=== PATIENT | female | born 1935 | race Caucasian/White ===

== ENCOUNTER 2023-07-03 18:54 | Inpatient (IN) | payer OTHER ==
[2023-07-03] MEDS ORDERED: MIRTAZAPINE 15 MG TABLET (FP) PO ONE (19:54)
[2023-07-03] MEDS ORDERED: QUEtiapine FUMARATE 25 MG TABLET PO ONE (19:54)
[2023-07-03] MEDS ORDERED: MEMANTINE HCL 5 MG TABLET (UD) PO ONE (19:54)
[2023-07-03] MEDS ORDERED: OXYBUTYNIN CHLORIDE 5 MG TABLET PO ONE (19:55)
[2023-07-03 20:28] LABS: EPI CELLS 21 /uL (0-25.1); HYALINE CASTS 1 /uL (0-3.1); PH,URINE 6.5 (5.0-8.0); URINE APPEARANCE CLEAR; URINE BACTERIA 11 /uL (0-1359); URINE BILIRUBIN NEGATIVE (NEGATIVE); URINE COLOR YELLOW; URINE GLUCOSE (UA) NEGATIVE (NEGATIVE); URINE KETONE NEGATIVE (NEGATIVE); URINE LEUK ESTERASE NEGATIVE (NEGATIVE); URINE NITRITE NEGATIVE (NEGATIVE); URINE PROTEIN 1+ (NEGATIVE); URINE RBC 8 /uL (0-23.9); URINE UROBILINOGEN 0.2 mg/dL (0.2-1.0); URINE WBC 9 /uL (0-25.8)
[2023-07-03 20:35] LABS: BASO % 1.1 % (0-2.0); EOS % 3.3 % (0-4.5); HEMATOCRIT 31.1 % (32.4-45.2); HEMOGLOBIN 9.9 GM/dL (10.7-15.3); LYMPH % 18.7 % (8-40); MCH 29.3 pg (25.7-33.7); MCHC 31.8 g/dl (32.0-36.0); MEAN CELL VOLUME 92.2 fl (80-96); MEAN PLT VOLUME 8.6 fl (7.5-11.1); MONO % 9.6 % (3.8-10.2); NEUT % 67.3 % (42.8-82.8); PLATELET COUNT 274 10^3/uL (134-434); RBC 3.37 M/mm3 (3.60-5.2); RDW 15.8 % (11.6-15.6); WHITE BLOOD COUNT 8.3 K/mm3 (4.0-10.0)
[2023-07-03 20:48] LABS: CHLORIDE 107 mmol/L (98-107); SODIUM 132 mmol/L (136-145)
[2023-07-03 20:50] LABS: ALBUMIN 3.2 g/dl (3.4-5.0); BLOOD UREA NITROGEN 51.2 mg/dL (7-18); CALCIUM 7.8 mg/dL (8.5-10.1); CO2 19 mmol/L (21-32); GLUCOSE,RANDOM 124 mg/dL (74-106); MAGNESIUM 2.4 mg/dL (1.8-2.4)
[2023-07-03 20:54] LABS: BILIRUBIN,TOTAL 0.8 mg/dL (0.2-1); CREATININE 5.9 mg/dL (0.55-1.3); PHOSPHOROUS 6.8 mg/dL (2.5-4.9); TOT PROT 8.2 g/dl (6.4-8.2)
[2023-07-03 20:56] LABS: ALK PHOS 77 U/L (45-117)
[2023-07-03] MEDS ORDERED: QUEtiapine FUMARATE 25 MG TABLET ONE (20:57)
[2023-07-03] MEDS ORDERED: MIRTAZAPINE 15 MG TABLET (FP) ONE (20:58)
[2023-07-03 21:06] LABS: ANION GAP 7 MMOL/L (8-16); POTASSIUM > 10.0 mmol/L (3.5-5.1); SGOT/AST 50 U/L (15-37); SGPT/ALT 17 U/L (13-61)
[2023-07-03 22:58] LABS: POTASSIUM 4.9 mmol/L (3.5-5.1)
[2023-07-03 23:00] LABS: ALBUMIN 3.5 g/dl (3.4-5.0); CALCIUM 8.4 mg/dL (8.5-10.1)
[2023-07-03 23:04] LABS: CREATININE 5.8 mg/dL (0.55-1.3)
[2023-07-03 23:06] LABS: BILIRUBIN,TOTAL 0.2 mg/dL (0.2-1); TOT PROT 7.9 g/dl (6.4-8.2)
[2023-07-04] MEDS ORDERED: HEPARIN NA (PORCINE) 5,000 UNITS/ML 1ML VIAL SQ ONE (02:48)
[2023-07-04] MEDS ORDERED: SODIUM CHLORIDE 1,000 ML IV SCH (03:00)
[2023-07-04] MEDS ORDERED: HEPARIN NA (PORCINE) 5,000 UNITS/ML 1ML VIAL ONE (04:38)
[2023-07-04 06:11] LABS: POTASSIUM 5.2 mmol/L (3.5-5.1)
[2023-07-04 06:12] LABS: MAGNESIUM 2.3 mg/dL (1.8-2.4)
[2023-07-04 06:14] LABS: ALBUMIN 3.4 g/dl (3.4-5.0); BLOOD UREA NITROGEN 53.4 mg/dL (7-18); CALCIUM 8.1 mg/dL (8.5-10.1)
[2023-07-04 06:17] LABS: CREATININE 5.8 mg/dL (0.55-1.3)
[2023-07-04 06:18] LABS: PHOSPHOROUS 6.7 mg/dL (2.5-4.9)
[2023-07-04 06:19] LABS: BILIRUBIN,TOTAL 0.2 mg/dL (0.2-1); TOT PROT 7.3 g/dl (6.4-8.2)
[2023-07-04 07:15] LABS: BASO % 1.1 % (0-2.0); LYMPH % 24.7 % (8-40); WHITE BLOOD COUNT 6.8 K/mm3 (4.0-10.0)
[2023-07-04 07:18] LABS: EOS % 4.5 % (0-4.5); HEMATOCRIT 30.4 % (32.4-45.2); MCH 30.4 pg (25.7-33.7); MCHC 32.9 g/dl (32.0-36.0); MEAN CELL VOLUME 92.5 fl (80-96); MEAN PLT VOLUME 7.8 fl (7.5-11.1); MONO % 10.2 % (3.8-10.2); NEUT % 59.5 % (42.8-82.8); PLATELET COUNT 283 10^3/uL (134-434); RBC 3.29 M/mm3 (3.60-5.2); RDW 15.7 % (11.6-15.6)
[2023-07-04] MEDS ORDERED: SODIUM ZIRCONIUM CYCLOSILICATE (LOKELMA) 5 GM PACKET PO SCH (10:00)
[2023-07-04] MEDS: DIVALPROEX NA *ER* EXTEND REL 250 MG TABLET.SA PO SCH (10:20)
[2023-07-04] MEDS: SEVELAMER CARBONATE 800 MG TAB (FP) PO SCH ×3 (10:20→17:02)
[2023-07-04] MEDS: PANTOPRAZOLE 40 MG TABLET PO SCH (10:20)
[2023-07-04] MEDS: MEMANTINE HCL 10 MG TABLET (FP) PO SCH ×2 (10:20→21:27)
[2023-07-04] MEDS: CITALOPRAM HYDROBROMIDE 20 MG TABLET PO SCH (10:20)
[2023-07-04] MEDS: amLODIPine BESYLATE 10 MG TABLET (FP) PO SCH (10:20)
[2023-07-04] MEDS: POLYETHYLENE GLYCOL (HEALTHYLAX) 3350 17 GM PACKET PO SCH ×2 (10:20→21:27)
[2023-07-04] MEDS: SODIUM CHLORIDE 0.45% 1,000 ML IV SCH (17:02)
[2023-07-04] MEDS: HEPARIN NA (PORCINE) 5,000 UNITS/ML 1ML VIAL SQ SCH (21:27)
[2023-07-04] MEDS ORDERED: QUEtiapine FUMARATE 25 MG TABLET PO SCH (22:00)
[2023-07-04] MEDS ORDERED: ATORVASTATIN CA 10 MG TABLET (FP) PO SCH (22:00)
[2023-07-04] MEDS ORDERED: MIRTAZAPINE 15 MG TABLET (FP) PO SCH (22:00)
[2023-07-05] MEDS: SODIUM CHLORIDE 0.45% 1,000 ML IV SCH ×3 (05:08→18:42)
[2023-07-05] MEDS: HEPARIN NA (PORCINE) 5,000 UNITS/ML 1ML VIAL SQ SCH ×3 (05:09→21:58)
[2023-07-05] MEDS: SEVELAMER CARBONATE 800 MG TAB (FP) PO SCH ×3 (08:06→17:42)
[2023-07-05] MEDS: CITALOPRAM HYDROBROMIDE 20 MG TABLET PO SCH (09:12)
[2023-07-05] MEDS: PANTOPRAZOLE 40 MG TABLET PO SCH (09:12)
[2023-07-05] MEDS: amLODIPine BESYLATE 10 MG TABLET (FP) PO SCH (09:12)
[2023-07-05] MEDS: POLYETHYLENE GLYCOL (HEALTHYLAX) 3350 17 GM PACKET PO SCH ×3 (09:13→21:58)
[2023-07-05] MEDS: DIVALPROEX NA *ER* EXTEND REL 250 MG TABLET.SA PO SCH (09:15)
[2023-07-05 09:40] LABS: HEMATOCRIT 28.8 % (32.4-45.2); HEMOGLOBIN 9.4 GM/dL (10.7-15.3); MCH 29.6 pg (25.7-33.7); MCHC 32.6 g/dl (32.0-36.0); MEAN CELL VOLUME 90.8 fl (80-96); MEAN PLT VOLUME 7.3 fl (7.5-11.1); PLATELET COUNT 265 10^3/uL (134-434); RBC 3.17 M/mm3 (3.60-5.2); RDW 15.7 % (11.6-15.6)
[2023-07-05 09:50] LABS: INR 1.08 (0.83-1.09); PROTHROMBIN TIME (PATIENT) 12.5 SEC (9.7-13.0)
[2023-07-05] MEDS: MEMANTINE HCL 10 MG TABLET (FP) PO SCH ×2 (09:59→21:57)
[2023-07-05 10:01] LABS: POTASSIUM 4.4 mmol/L (3.5-5.1)
[2023-07-05 10:03] LABS: BLOOD UREA NITROGEN 49.2 mg/dL (7-18); CALCIUM 7.8 mg/dL (8.5-10.1); MAGNESIUM 2.1 mg/dL (1.8-2.4)
[2023-07-05 10:06] LABS: CREATININE 5.6 mg/dL (0.55-1.3); PHOSPHOROUS 6.1 mg/dL (2.5-4.9)
[2023-07-05] MEDS ORDERED: MIDAZOLAM HCL 2 MG/2 ML SINGLE DOSE VIAL ONE (15:39)
[2023-07-05] MEDS ORDERED: IOHEXOL 300 MG/ML INFUS..BTL IV ONE (15:49)
[2023-07-05] MEDS ORDERED: LACTATED RINGERS SOLUTION 1,000 ML IV SCH (16:15)
[2023-07-05] MEDS: ATORVASTATIN CA 10 MG TABLET (FP) PO SCH (21:57)
[2023-07-05] MEDS: MIRTAZAPINE 15 MG TABLET (FP) PO SCH (21:57)
[2023-07-05] MEDS: QUEtiapine FUMARATE 25 MG TABLET PO SCH (21:57)
[2023-07-06] MEDS: HEPARIN NA (PORCINE) 5,000 UNITS/ML 1ML VIAL SQ SCH ×3 (06:16→22:07)
[2023-07-06] MEDS: SEVELAMER CARBONATE 800 MG TAB (FP) PO SCH ×3 (08:57→17:25)
[2023-07-06] MEDS ORDERED: ACETAMINOPHEN 1000 MG/100 ML BAG IVPB PRN (09:47)
[2023-07-06] MEDS: PANTOPRAZOLE 40 MG TABLET PO SCH (10:14)
[2023-07-06] MEDS: MEMANTINE HCL 10 MG TABLET (FP) PO SCH ×2 (10:14→22:06)
[2023-07-06] MEDS: amLODIPine BESYLATE 10 MG TABLET (FP) PO SCH (10:14)
[2023-07-06] MEDS: CITALOPRAM HYDROBROMIDE 20 MG TABLET PO SCH (10:14)
[2023-07-06] MEDS: DIVALPROEX NA *ER* EXTEND REL 250 MG TABLET.SA PO SCH (10:14)
[2023-07-06] MEDS: POLYETHYLENE GLYCOL (HEALTHYLAX) 3350 17 GM PACKET PO SCH ×2 (10:15→22:08)
[2023-07-06] MEDS: SODIUM CHLORIDE 0.45% 1,000 ML IV SCH (19:47)
[2023-07-06] MEDS ORDERED: LABETALOL HCL 100 MG TABLET (FP) PO ONE (21:29)
[2023-07-06] MEDS: MIRTAZAPINE 15 MG TABLET (FP) PO SCH (22:06)
[2023-07-06] MEDS: QUEtiapine FUMARATE 25 MG TABLET PO SCH (22:06)
[2023-07-06] MEDS: ATORVASTATIN CA 10 MG TABLET (FP) PO SCH (22:06)
[2023-07-07] MEDS: HEPARIN NA (PORCINE) 5,000 UNITS/ML 1ML VIAL SQ SCH (05:42)
[2023-07-07] MEDS: SODIUM CHLORIDE 0.45% 1,000 ML IV SCH ×2 (06:28→21:35)
[2023-07-07] MEDS: SEVELAMER CARBONATE 800 MG TAB (FP) PO SCH ×3 (08:44→17:30)
[2023-07-07] MEDS: CITALOPRAM HYDROBROMIDE 20 MG TABLET PO SCH (12:57)
[2023-07-07] MEDS: DIVALPROEX NA *ER* EXTEND REL 250 MG TABLET.SA PO SCH (12:57)
[2023-07-07] MEDS: PANTOPRAZOLE 40 MG TABLET PO SCH (12:58)
[2023-07-07] MEDS: amLODIPine BESYLATE 10 MG TABLET (FP) PO SCH (12:58)
[2023-07-07] MEDS: POLYETHYLENE GLYCOL (HEALTHYLAX) 3350 17 GM PACKET PO SCH ×2 (12:58→21:37)
[2023-07-07] MEDS: MEMANTINE HCL 10 MG TABLET (FP) PO SCH ×2 (12:58→21:36)
[2023-07-07 13:03] LABS: CHLORIDE 102 mmol/L (98-107); POTASSIUM 5.5 mmol/L (3.5-5.1)
[2023-07-07 13:05] LABS: CALCIUM 7.6 mg/dL (8.5-10.1)
[2023-07-07 13:06] LABS: CO2 14 mmol/L (21-32); GLUCOSE,RANDOM 132 mg/dL (74-106)
[2023-07-07 13:09] LABS: SGOT/AST 14 U/L (15-37)
[2023-07-07 13:10] LABS: BILIRUBIN,TOTAL 0.1 mg/dL (0.2-1); TOT PROT 5.9 g/dl (6.4-8.2)
[2023-07-07 13:11] LABS: ALK PHOS 72 U/L (45-117)
[2023-07-07 13:16] LABS: ALBUMIN 2.4 g/dl (3.4-5.0); ANION GAP 19 MMOL/L (8-16); SGPT/ALT < 6 U/L (13-61); SODIUM 135 mmol/L (136-145)
[2023-07-07] MEDS ORDERED: DEXTROSE 50%-WATER 25 GM/50 ML DISP.SYRIN IVPUSH ONE (13:36)
[2023-07-07] MEDS ORDERED: INSULIN REGULAR HUMAN 100 UNITS/ML *VIAL IVPUSH ONE (13:36)
[2023-07-07] MEDS ORDERED: CALCIUM GLUCONATE IN NACL 1 GM/50 ML BAG IVPB ONE (13:36)
[2023-07-07] MEDS ORDERED: SODIUM ZIRCONIUM CYCLOSILICATE (LOKELMA) 5 GM PACKET PO SCH (13:45)
[2023-07-07] MEDS: SODIUM ZIRCONIUM CYCLOSILICATE (LOKELMA) 5 GM PACKET PO SCH ×2 (15:39→21:37)
[2023-07-07 16:29] LABS: INR 1.22 (0.83-1.09); PROTHROMBIN TIME (PATIENT) 14.1 SEC (9.7-13.0)
[2023-07-07 18:39] LABS: CHLORIDE 104 mmol/L (98-107); POTASSIUM 4.9 mmol/L (3.5-5.1); SODIUM 134 mmol/L (136-145)
[2023-07-07 18:41] LABS: CALCIUM 7.6 mg/dL (8.5-10.1)
[2023-07-07 18:42] LABS: ANION GAP 19 MMOL/L (8-16); BLOOD UREA NITROGEN 79.9 mg/dL (7-18); CO2 11 mmol/L (21-32); GLUCOSE,RANDOM 177 mg/dL (74-106)
[2023-07-07 19:14] LABS: CREATININE 8.4 mg/dL (0.55-1.3)
[2023-07-07] MEDS: QUEtiapine FUMARATE 25 MG TABLET PO SCH (21:36)
[2023-07-07] MEDS: MIRTAZAPINE 15 MG TABLET (FP) PO SCH (21:36)
[2023-07-07] MEDS: ATORVASTATIN CA 10 MG TABLET (FP) PO SCH (21:36)
[2023-07-08] MEDS: SEVELAMER CARBONATE 800 MG TAB (FP) PO SCH ×3 (09:28→18:11)
[2023-07-08] MEDS ORDERED: VALPROATE SODIUM 500 MG/5 ML VIAL IVPB SCH (09:46)
[2023-07-08] MEDS: POLYETHYLENE GLYCOL (HEALTHYLAX) 3350 17 GM PACKET PO SCH ×2 (09:49→23:29)
[2023-07-08] MEDS: SODIUM ZIRCONIUM CYCLOSILICATE (LOKELMA) 5 GM PACKET PO SCH (09:49)
[2023-07-08] MEDS: CITALOPRAM HYDROBROMIDE 20 MG TABLET PO SCH (09:49)
[2023-07-08] MEDS: MEMANTINE HCL 10 MG TABLET (FP) PO SCH (09:50)
[2023-07-08] MEDS: amLODIPine BESYLATE 10 MG TABLET (FP) PO SCH (09:50)
[2023-07-08] MEDS: PANTOPRAZOLE 40 MG TABLET PO SCH (09:51)
[2023-07-08 10:54] LABS: HEMATOCRIT 27.1 % (32.4-45.2); HEMOGLOBIN 9.1 GM/dL (10.7-15.3); MCH 30.3 pg (25.7-33.7); MCHC 33.8 g/dl (32.0-36.0); MEAN CELL VOLUME 89.6 fl (80-96); MEAN PLT VOLUME 7.7 fl (7.5-11.1); PLATELET COUNT 267 10^3/uL (134-434); RBC 3.02 M/mm3 (3.60-5.2); RDW 15.6 % (11.6-15.6); WHITE BLOOD COUNT 17.9 K/mm3 (4.0-10.0)
[2023-07-08 11:20] LABS: CHLORIDE 101 mmol/L (98-107); POTASSIUM 5.9 mmol/L (3.5-5.1); SODIUM 130 mmol/L (136-145)
[2023-07-08 11:27] LABS: MAGNESIUM 2.4 mg/dL (1.8-2.4)
[2023-07-08 11:28] LABS: GLUCOSE,RANDOM 83 mg/dL (74-106)
[2023-07-08 11:29] LABS: BLOOD UREA NITROGEN 96.4 mg/dL (7-18)
[2023-07-08 11:30] LABS: ANION GAP 18 MMOL/L (8-16); BILIRUBIN,TOTAL 0.2 mg/dL (0.2-1); CO2 12 mmol/L (21-32); SGOT/AST 13 U/L (15-37); SGPT/ALT < 6 U/L (13-61)
[2023-07-08 11:31] LABS: ALBUMIN 2.5 g/dl (3.4-5.0); ALK PHOS 74 U/L (45-117); CALCIUM 7.4 mg/dL (8.5-10.1); PHOSPHOROUS 8.9 mg/dL (2.5-4.9); TOT PROT 5.9 g/dl (6.4-8.2)
[2023-07-08 11:33] LABS: CREATININE 8.8 mg/dL (0.55-1.3)
[2023-07-08] MEDS ORDERED: DEXTROSE 50%-WATER - 25 GM/50 ML VIAL IVPUSH ONE (11:36)
[2023-07-08] MEDS ORDERED: SODIUM BICARBONATE 8.4% 50 MEQ/50 ML VIAL IVPUSH ONE ×2 (11:37→12:56)
[2023-07-08] MEDS ORDERED: INSULIN REGULAR HUMAN 100 UNITS/ML *VIAL SQ ONE (11:37)
[2023-07-08] MEDS ORDERED: DEXTROSE 50%-WATER 25 GM/50 ML DISP.SYRIN ONE (11:47)
[2023-07-08 11:55] LABS: ANISOCYTOSIS 0; HELMET CELLS 0; HOWELL-JOLLY BODIES 0; MACROCYTOSIS 0; OVALOCYTE 0; ROULEAU 0; SICKELED CELLS 0; TARGET CELLS 0; TEAR DROP CELLS 0; TOXIC GRANULATION 0
[2023-07-08] MEDS ORDERED: INSULIN REGULAR HUMAN 100 UNITS/ML *VIAL IVPUSH ONE (12:03)
[2023-07-08] MEDS: VALPROATE SODIUM INJECTION 250 MG in DEXTROSE 5%-WATER - 100 ML IVPB SCH ×2 (13:29→18:11)
[2023-07-08] MEDS ORDERED: SODIUM CHLORIDE 0.9% 500 ML IV SCH (14:30)
[2023-07-08] MEDS ORDERED: FENTANYL CITRATE/PF 50 MCG/ML VIAL IVPUSH ONE ×2 (14:31→14:53)
[2023-07-08] MEDS ORDERED: CEFTRIAXONE 2 GM in DEXTROSE 5%-WATER 100 ML IVPB ONE (14:37)
[2023-07-08 15:37] LABS: ANION GAP 21 MMOL/L (8-16); BLOOD UREA NITROGEN 103.6 mg/dL (7-18); CALCIUM 7.4 mg/dL (8.5-10.1); CHLORIDE 102 mmol/L (98-107); CO2 9 mmol/L (21-32); CREATININE 9.2 mg/dL (0.55-1.3); GLUCOSE,RANDOM 117 mg/dL (74-106); POTASSIUM 5.2 mmol/L (3.5-5.1); SODIUM 132 mmol/L (136-145)
[2023-07-08] MEDS ORDERED: cefTRIAXone SODIUM 1 GM VIAL ONE (16:02)
[2023-07-08] MEDS ORDERED: MIDAZOLAM HCL 2 MG/2 ML SINGLE DOSE VIAL ONE (16:02)
[2023-07-08] MEDS ORDERED: FENTANYL CITRATE/PF 50 MCG/ML VIAL ONE ×2 (16:03→16:51)
[2023-07-08] MEDS ORDERED: MIRTAZAPINE 15 MG TABLET (FP) GT SCH (19:35)
[2023-07-08] MEDS ORDERED: QUEtiapine FUMARATE 25 MG TABLET GT SCH (19:35)
[2023-07-08 19:52] LABS: HEMATOCRIT 26.4 % (32.4-45.2); HEMOGLOBIN 8.5 GM/dL (10.7-15.3); MCHC 32.1 g/dl (32.0-36.0); MEAN CELL VOLUME 93.4 fl (80-96); MEAN PLT VOLUME 7.8 fl (7.5-11.1); PLATELET COUNT 270 10^3/uL (134-434); RBC 2.82 M/mm3 (3.60-5.2)
[2023-07-08] MEDS: SODIUM CHLORIDE 0.45% 1,000 ML IV SCH (20:00)
[2023-07-08 21:07] LABS: ANTIGLOMERULAR BASEMENT MEN.AB <0.2 units (0.0-0.9); ATYPICAL pANCA <1:20 titer (Neg:<1:20); C-ANCA <1:20 titer (Neg:<1:20)
[2023-07-08 21:45] LABS: CHLORIDE 100 mmol/L (98-107); POTASSIUM 5.5 mmol/L (3.5-5.1); SODIUM 132 mmol/L (136-145)
[2023-07-08 21:48] LABS: CALCIUM 7.9 mg/dL (8.5-10.1)
[2023-07-08 21:49] LABS: ALBUMIN 2.6 g/dl (3.4-5.0); ANION GAP 18 MMOL/L (8-16); BLOOD UREA NITROGEN 103.8 mg/dL (7-18); CO2 14 mmol/L (21-32); GLUCOSE,RANDOM 91 mg/dL (74-106); MAGNESIUM 2.5 mg/dL (1.8-2.4)
[2023-07-08 21:52] LABS: SGOT/AST 17 U/L (15-37); SGPT/ALT < 6 U/L (13-61)
[2023-07-08 21:53] LABS: BILIRUBIN,TOTAL 0.4 mg/dL (0.2-1)
[2023-07-08 21:54] LABS: TOT PROT 6.6 g/dl (6.4-8.2)
[2023-07-08 21:55] LABS: ALK PHOS 81 U/L (45-117)
[2023-07-08 22:35] LABS: CREATININE 9.1 mg/dL (0.55-1.3); PHOSPHOROUS 8.9 mg/dL (2.5-4.9)
[2023-07-08] MEDS: ATORVASTATIN CA 10 MG TABLET (FP) PO SCH (23:29)
[2023-07-08] MEDS: SEVELAMER CARBONATE 0.8 GM POWDER PACKET GT SCH (23:29)
[2023-07-08] MEDS: MEMANTINE HCL 10 MG TABLET (FP) GT SCH (23:30)
[2023-07-08] MEDS: SODIUM ZIRCONIUM CYCLOSILICATE (LOKELMA) 5 GM PACKET GT SCH (23:30)
[2023-07-09] MEDS: VALPROATE SODIUM INJECTION 250 MG in DEXTROSE 5%-WATER - 100 ML IVPB SCH ×3 (04:17→17:59)
[2023-07-09 08:10] LABS: CHLORIDE 101 mmol/L (98-107); POTASSIUM 4.8 mmol/L (3.5-5.1); SODIUM 135 mmol/L (136-145)
[2023-07-09 08:22] LABS: ALBUMIN 2.5 g/dl (3.4-5.0); ANION GAP 18 MMOL/L (8-16); BLOOD UREA NITROGEN 98.4 mg/dL (7-18); CALCIUM 7.8 mg/dL (8.5-10.1); CO2 16 mmol/L (21-32); GLUCOSE,RANDOM 86 mg/dL (74-106); MAGNESIUM 2.2 mg/dL (1.8-2.4)
[2023-07-09 08:25] LABS: PHOSPHOROUS 8.9 mg/dL (2.5-4.9); SGOT/AST 17 U/L (15-37)
[2023-07-09 08:27] LABS: TOT PROT 6.4 g/dl (6.4-8.2)
[2023-07-09 08:28] LABS: ALK PHOS 80 U/L (45-117); BILIRUBIN,TOTAL 0.2 mg/dL (0.2-1)
[2023-07-09 08:29] LABS: CREATININE 8.3 mg/dL (0.55-1.3); SGPT/ALT < 6 U/L (13-61)
[2023-07-09 08:55] LABS: HEMATOCRIT 25.3 % (32.4-45.2); HEMOGLOBIN 8.4 GM/dL (10.7-15.3); MCH 29.8 pg (25.7-33.7); MCHC 33.1 g/dl (32.0-36.0); MEAN PLT VOLUME 7.5 fl (7.5-11.1); PLATELET COUNT 285 10^3/uL (134-434); RBC 2.81 M/mm3 (3.60-5.2); RDW 15.8 % (11.6-15.6); WHITE BLOOD COUNT 15.5 K/mm3 (4.0-10.0)
[2023-07-09] MEDS: SEVELAMER CARBONATE 0.8 GM POWDER PACKET GT SCH ×3 (10:00→17:59)
[2023-07-09] MEDS: SODIUM CHLORIDE 0.45% 1,000 ML IV SCH (10:00)
[2023-07-09] MEDS: SODIUM ZIRCONIUM CYCLOSILICATE (LOKELMA) 5 GM PACKET GT SCH ×2 (10:01→21:50)
[2023-07-09] MEDS: POLYETHYLENE GLYCOL (HEALTHYLAX) 3350 17 GM PACKET PO SCH ×2 (10:04→21:28)
[2023-07-09] MEDS: MEMANTINE HCL 10 MG TABLET (FP) GT SCH ×2 (10:04→21:29)
[2023-07-09] MEDS: CITALOPRAM HYDROBROMIDE 20 MG TABLET PO SCH (10:04)
[2023-07-09] MEDS: amLODIPine BESYLATE 10 MG TABLET (FP) GT SCH (10:04)
[2023-07-09] MEDS: PANTOPRAZOLE 40 MG TABLET PO SCH (10:05)
[2023-07-09] MEDS ORDERED: SODIUM BICARBONATE 8.4% 50 MEQ/50 ML DISP.SYRIN IVPUSH ONE (11:55)
[2023-07-09] MEDS ORDERED: SODIUM BICARBONATE 8.4% 50 MEQ/50 ML VIAL ONE (12:24)
[2023-07-09] MEDS ORDERED: ACETAMINOPHEN 1000 MG/100 ML BAG IVPB ONE (20:08)
[2023-07-09] MEDS: ATORVASTATIN CA 10 MG TABLET (FP) PO SCH (21:29)
[2023-07-10] MEDS: VALPROATE SODIUM INJECTION 250 MG in DEXTROSE 5%-WATER - 100 ML IVPB SCH ×3 (03:13→18:19)
[2023-07-10 08:24] LABS: HEMATOCRIT 24.7 % (32.4-45.2); HEMOGLOBIN 8.2 GM/dL (10.7-15.3); MCH 29.8 pg (25.7-33.7); MCHC 33.3 g/dl (32.0-36.0); MEAN CELL VOLUME 89.5 fl (80-96); MEAN PLT VOLUME 7.5 fl (7.5-11.1); PLATELET COUNT 309 10^3/uL (134-434); RBC 2.76 M/mm3 (3.60-5.2); RDW 15.3 % (11.6-15.6); WHITE BLOOD COUNT 15.2 K/mm3 (4.0-10.0)
[2023-07-10 08:54] LABS: CHLORIDE 104 mmol/L (98-107); POTASSIUM 3.4 mmol/L (3.5-5.1); SODIUM 139 mmol/L (136-145)
[2023-07-10] MEDS: SEVELAMER CARBONATE 0.8 GM POWDER PACKET GT SCH ×2 (09:00→12:49)
[2023-07-10 09:04] LABS: CALCIUM 7.8 mg/dL (8.5-10.1)
[2023-07-10 09:05] LABS: ALBUMIN 2.4 g/dl (3.4-5.0); ANION GAP 17 MMOL/L (8-16); BLOOD UREA NITROGEN 90.6 mg/dL (7-18); CO2 18 mmol/L (21-32); GLUCOSE,RANDOM 76 mg/dL (74-106); MAGNESIUM 1.9 mg/dL (1.8-2.4)
[2023-07-10 09:08] LABS: CREATININE 6.5 mg/dL (0.55-1.3)
[2023-07-10 09:10] LABS: BILIRUBIN,TOTAL 0.3 mg/dL (0.2-1); PHOSPHOROUS 7.6 mg/dL (2.5-4.9); SGOT/AST 16 U/L (15-37)
[2023-07-10 09:11] LABS: ALK PHOS 74 U/L (45-117)
[2023-07-10 09:16] LABS: SGPT/ALT < 6 U/L (13-61)
[2023-07-10] MEDS ORDERED: ATORVASTATIN CA 10 MG TABLET (FP) GT SCH (10:10)
[2023-07-10] MEDS ORDERED: FAMOTIDINE 10 MG TABLET PEG SCH (10:13)
[2023-07-10] MEDS ORDERED: POLYETHYLENE GLYCOL (HEALTHYLAX) 3350 17 GM PACKET GT SCH (10:15)
[2023-07-10] MEDS ORDERED: CITALOPRAM HYDROBROMIDE 20 MG TABLET GT SCH (10:15)
[2023-07-10] MEDS: MEMANTINE HCL 10 MG TABLET (FP) GT SCH (11:21)
[2023-07-10] MEDS: amLODIPine BESYLATE 10 MG TABLET (FP) GT SCH (11:22)
[2023-07-10] MEDS: SODIUM CHLORIDE 0.45% 1,000 ML IV SCH ×2 (11:26→11:34)
[2023-07-10] MEDS: KCL 10 MEQ IVPB 10 MEQ/100 ML INFUS.BAG IVPB SCH ×3 (11:31→16:17)
[2023-07-10] MEDS: CITALOPRAM HYDROBROMIDE 20 MG TABLET PO SCH (11:34)
[2023-07-10] MEDS: POLYETHYLENE GLYCOL (HEALTHYLAX) 3350 17 GM PACKET PO SCH ×2 (11:35→22:09)
[2023-07-10] MEDS: PANTOPRAZOLE 40 MG TABLET PO SCH (11:35)
[2023-07-10 17:33] LABS: BASO % 0.4 % (0-2.0); EOS % 0.4 % (0-4.5); HEMATOCRIT 24.9 % (32.4-45.2); HEMOGLOBIN 8.4 GM/dL (10.7-15.3); LYMPH % 7.4 % (8-40); MCH 29.7 pg (25.7-33.7); MCHC 33.9 g/dl (32.0-36.0); MEAN CELL VOLUME 87.7 fl (80-96); MEAN PLT VOLUME 7.6 fl (7.5-11.1); MONO % 11.9 % (3.8-10.2); NEUT % 79.9 % (42.8-82.8); PLATELET COUNT 296 10^3/uL (134-434); RBC 2.84 M/mm3 (3.60-5.2); RDW 15.5 % (11.6-15.6); WHITE BLOOD COUNT 14.7 K/mm3 (4.0-10.0)
[2023-07-10] MEDS: SEVELAMER CARBONATE 0.8 GM POWDER PACKET PO SCH (18:12)
[2023-07-10 18:55] LABS: ANISOCYTOSIS 1+; PLATELET ESTIMATE ADEQUATE
[2023-07-10] MEDS ORDERED: QUEtiapine FUMARATE 25 MG TABLET PO SCH (22:00)
[2023-07-10] MEDS: ATORVASTATIN CA 10 MG TABLET (FP) PO SCH (22:09)
[2023-07-10] MEDS: MEMANTINE HCL 10 MG TABLET (FP) PO SCH (22:09)
[2023-07-10] MEDS: QUEtiapine FUMARATE 25 MG TABLET PO SCH (22:09)
[2023-07-10 23:59] VITALS: BMI 33.5
[2023-07-11] MEDS: VALPROATE SODIUM INJECTION 250 MG in DEXTROSE 5%-WATER - 100 ML IVPB SCH ×3 (01:27→17:27)
[2023-07-11 08:46] LABS: HEMOGLOBIN 7.4 GM/dL (10.7-15.3); MCH 30.3 pg (25.7-33.7); MCHC 33.8 g/dl (32.0-36.0); MEAN CELL VOLUME 89.8 fl (80-96); MEAN PLT VOLUME 7.4 fl (7.5-11.1); PLATELET COUNT 309 10^3/uL (134-434); RBC 2.45 M/mm3 (3.60-5.2); RDW 15.4 % (11.6-15.6); WHITE BLOOD COUNT 14.4 K/mm3 (4.0-10.0)
[2023-07-11 09:09] LABS: CHLORIDE 105 mmol/L (98-107); POTASSIUM 3.5 mmol/L (3.5-5.1); SODIUM 141 mmol/L (136-145)
[2023-07-11 09:12] LABS: ANION GAP 14 MMOL/L (8-16); BLOOD UREA NITROGEN 75.4 mg/dL (7-18); CALCIUM 7.8 mg/dL (8.5-10.1); CO2 21 mmol/L (21-32)
[2023-07-11 09:14] LABS: ALBUMIN 2.4 g/dl (3.4-5.0); GLUCOSE,RANDOM 83 mg/dL (74-106); MAGNESIUM 1.9 mg/dL (1.8-2.4)
[2023-07-11 09:15] LABS: PHOSPHOROUS 6.4 mg/dL (2.5-4.9)
[2023-07-11 09:16] LABS: CREATININE 4.9 mg/dL (0.55-1.3); SGOT/AST 16 U/L (15-37)
[2023-07-11 09:17] LABS: BILIRUBIN,TOTAL 0.2 mg/dL (0.2-1); TOT PROT 6.1 g/dl (6.4-8.2)
[2023-07-11 09:18] LABS: ALK PHOS 72 U/L (45-117)
[2023-07-11 09:30] LABS: SGPT/ALT < 6 U/L (13-61)
[2023-07-11] MEDS ORDERED: DIVALPROEX NA *ER* EXTEND REL 250 MG TABLET.SA PO SCH (10:00)
[2023-07-11] MEDS: SEVELAMER CARBONATE 0.8 GM POWDER PACKET PO SCH ×3 (10:16→17:26)
[2023-07-11] MEDS: POLYETHYLENE GLYCOL (HEALTHYLAX) 3350 17 GM PACKET PO SCH ×2 (10:17→22:07)
[2023-07-11] MEDS: CITALOPRAM HYDROBROMIDE 20 MG TABLET PO SCH (10:17)
[2023-07-11] MEDS: FAMOTIDINE 10 MG TABLET PO SCH (10:17)
[2023-07-11] MEDS: SODIUM CHLORIDE 0.45% 1,000 ML IV SCH (10:17)
[2023-07-11] MEDS: MEMANTINE HCL 10 MG TABLET (FP) PO SCH ×2 (10:17→22:07)
[2023-07-11] MEDS: amLODIPine BESYLATE 10 MG TABLET (FP) PO SCH (10:17)
[2023-07-11] MEDS ORDERED: SODIUM CHLORIDE 0.45% 1,000 ML IV SCH (18:47)
[2023-07-11] MEDS: QUEtiapine FUMARATE 25 MG TABLET PO SCH (22:07)
[2023-07-11] MEDS: ATORVASTATIN CA 10 MG TABLET (FP) PO SCH (22:08)
[2023-07-12 00:52] LABS: EPI CELLS 8 /uL (0-25.1); HYALINE CASTS 0 /uL (0-3.1); URINE APPEARANCE CLEAR; URINE BACTERIA 9 /uL (0-1359); URINE BILIRUBIN NEGATIVE (NEGATIVE); URINE COLOR RED; URINE GLUCOSE (UA) NEGATIVE (NEGATIVE); URINE KETONE 1+ (NEGATIVE); URINE LEUK ESTERASE TRACE (NEGATIVE); URINE NITRITE NEGATIVE (NEGATIVE); URINE PROTEIN 1+ (NEGATIVE); URINE RBC 8713 /uL (0-23.9); URINE UROBILINOGEN 0.2 mg/dL (0.2-1.0); URINE WBC 75 /uL (0-25.8)
[2023-07-12] MEDS ORDERED: VALPROATE SODIUM 500 MG/5 ML VIAL IVPB SCH (02:00)
[2023-07-12] MEDS ORDERED: VALPROATE SODIUM INJECTION 250 MG in DEXTROSE 5%-WATER - 100 ML IVPB ONE (02:00)
[2023-07-12 08:45] LABS: HEMATOCRIT 24.5 % (32.4-45.2); HEMOGLOBIN 8.4 GM/dL (10.7-15.3); MCH 30.2 pg (25.7-33.7); MCHC 34.1 g/dl (32.0-36.0); MEAN CELL VOLUME 88.5 fl (80-96); MEAN PLT VOLUME 7.9 fl (7.5-11.1); RBC 2.77 M/mm3 (3.60-5.2); RDW 15.5 % (11.6-15.6); WHITE BLOOD COUNT 12.9 K/mm3 (4.0-10.0)
[2023-07-12 08:50] LABS: POTASSIUM 3.4 mmol/L (3.5-5.1)
[2023-07-12 08:55] LABS: ALBUMIN 2.4 g/dl (3.4-5.0); BLOOD UREA NITROGEN 54.3 mg/dL (7-18)
[2023-07-12 08:56] LABS: CALCIUM 7.8 mg/dL (8.5-10.1); MAGNESIUM 1.4 mg/dL (1.8-2.4)
[2023-07-12 08:58] LABS: CREATININE 3.4 mg/dL (0.55-1.3)
[2023-07-12 08:59] LABS: PHOSPHOROUS 4.8 mg/dL (2.5-4.9)
[2023-07-12 09:01] LABS: BILIRUBIN,TOTAL 0.2 mg/dL (0.2-1); TOT PROT 6.3 g/dl (6.4-8.2)
[2023-07-12] MEDS: CITALOPRAM HYDROBROMIDE 20 MG TABLET PO SCH (09:45)
[2023-07-12] MEDS: DIVALPROEX NA *ER* EXTEND REL 250 MG TABLET.SA PO SCH (09:45)
[2023-07-12] MEDS: FAMOTIDINE 10 MG TABLET PO SCH (09:45)
[2023-07-12] MEDS: amLODIPine BESYLATE 10 MG TABLET (FP) PO SCH (09:45)
[2023-07-12] MEDS: MEMANTINE HCL 10 MG TABLET (FP) PO SCH ×2 (09:45→21:38)
[2023-07-12 09:50] LABS: PLATELET COUNT 298 10^3/uL (134-434)
[2023-07-12] MEDS: SEVELAMER CARBONATE 0.8 GM POWDER PACKET PO SCH ×3 (09:52→17:55)
[2023-07-12] MEDS: POLYETHYLENE GLYCOL (HEALTHYLAX) 3350 17 GM PACKET PO SCH ×2 (09:52→21:38)
[2023-07-12] MEDS ORDERED: MAGNESIUM SULF 50% (8.12 MEQ/2 ML-1 GM VIAL) IVPB ONE (13:00)
[2023-07-12] MEDS: KCL 10 MEQ IVPB 10 MEQ/100 ML INFUS.BAG IVPB SCH ×3 (14:22→16:58)
[2023-07-12] MEDS: QUEtiapine FUMARATE 25 MG TABLET PO SCH (21:38)
[2023-07-12] MEDS: ATORVASTATIN CA 10 MG TABLET (FP) PO SCH (21:39)
[2023-07-13] MEDS: MEMANTINE HCL 10 MG TABLET (FP) PO SCH ×4 (04:13→20:59)
[2023-07-13 07:29] LABS: HEMATOCRIT 22.6 % (32.4-45.2); HEMOGLOBIN 7.6 GM/dL (10.7-15.3); MCH 30.3 pg (25.7-33.7); MCHC 33.6 g/dl (32.0-36.0); MEAN PLT VOLUME 7.2 fl (7.5-11.1); PLATELET COUNT 342 10^3/uL (134-434); RBC 2.51 M/mm3 (3.60-5.2); RDW 15.3 % (11.6-15.6); WHITE BLOOD COUNT 14.2 K/mm3 (4.0-10.0)
[2023-07-13 07:46] LABS: CALCIUM 7.6 mg/dL (8.5-10.1)
[2023-07-13 07:47] LABS: ALBUMIN 2.2 g/dl (3.4-5.0); BLOOD UREA NITROGEN 37.9 mg/dL (7-18); MAGNESIUM 1.6 mg/dL (1.8-2.4)
[2023-07-13 07:50] LABS: CREATININE 2.3 mg/dL (0.55-1.3); PHOSPHOROUS 3.7 mg/dL (2.5-4.9)
[2023-07-13 07:51] LABS: BILIRUBIN,TOTAL 0.2 mg/dL (0.2-1); TOT PROT 5.6 g/dl (6.4-8.2)
[2023-07-13] MEDS ORDERED: SODIUM CHLORIDE 0.45% 1,000 ML IV SCH (08:34)
[2023-07-13] MEDS ORDERED: POTASSIUM CHLORIDE ORAL LIQUID 20 MEQ/15 ML PO ONE (08:45)
[2023-07-13] MEDS ORDERED: MAGNESIUM SULF 50% (8.12 MEQ/2 ML-1 GM VIAL) IVPB ONE (08:45)
[2023-07-13] MEDS: SEVELAMER CARBONATE 0.8 GM POWDER PACKET PO SCH ×2 (08:48→12:38)
[2023-07-13] MEDS: amLODIPine BESYLATE 10 MG TABLET (FP) PO SCH (09:14)
[2023-07-13] MEDS: FAMOTIDINE 10 MG TABLET PO SCH (09:14)
[2023-07-13] MEDS: DIVALPROEX NA *ER* EXTEND REL 250 MG TABLET.SA PO SCH (09:14)
[2023-07-13] MEDS: CITALOPRAM HYDROBROMIDE 20 MG TABLET PO SCH (09:14)
[2023-07-13] MEDS: POLYETHYLENE GLYCOL (HEALTHYLAX) 3350 17 GM PACKET PO SCH ×2 (09:14→20:59)
[2023-07-13] MEDS: KCL 10 MEQ IVPB 10 MEQ/100 ML INFUS.BAG IVPB SCH ×3 (09:53→12:34)
[2023-07-13] MEDS: SODIUM CHLORIDE 0.45%/POT 20 MEQ/1,000 ML INFUS.BAG IV SCH (13:08)
[2023-07-13] MEDS: QUEtiapine FUMARATE 25 MG TABLET PO SCH (18:55)
[2023-07-13] MEDS: ATORVASTATIN CA 10 MG TABLET (FP) PO SCH (20:59)
[2023-07-13] MEDS ORDERED: HALOPERIDOL LACTATE 5 MG/ML IM ONE (21:02)
[2023-07-14] MEDS ORDERED: MAG HYDROX/AL HYDROX/SIMETH 30 ML UNIT-DOSE CUP PO ONE (01:27)
[2023-07-14] MEDS: SODIUM CHLORIDE 0.45%/POT 20 MEQ/1,000 ML INFUS.BAG IV SCH ×2 (05:29→14:56)
[2023-07-14] MEDS ORDERED: ACETAMINOPHEN 1000 MG/100 ML BAG IVPB ONE (05:30)
[2023-07-14 08:04] LABS: HEMATOCRIT 21.2 % (32.4-45.2); HEMOGLOBIN 7.1 GM/dL (10.7-15.3); MCH 30.3 pg (25.7-33.7); MCHC 33.4 g/dl (32.0-36.0); MEAN CELL VOLUME 90.8 fl (80-96); MEAN PLT VOLUME 6.9 fl (7.5-11.1); PLATELET COUNT 335 10^3/uL (134-434); RBC 2.33 M/mm3 (3.60-5.2); RDW 15.2 % (11.6-15.6); WHITE BLOOD COUNT 11.2 K/mm3 (4.0-10.0)
[2023-07-14 08:22] LABS: POTASSIUM 3.8 mmol/L (3.5-5.1)
[2023-07-14 08:28] LABS: CALCIUM 7.9 mg/dL (8.5-10.1)
[2023-07-14 08:29] LABS: ALBUMIN 2.2 g/dl (3.4-5.0); BLOOD UREA NITROGEN 30.9 mg/dL (7-18)
[2023-07-14 08:32] LABS: CREATININE 2.2 mg/dL (0.55-1.3); PHOSPHOROUS 2.9 mg/dL (2.5-4.9)
[2023-07-14 08:33] LABS: TOT PROT 5.7 g/dl (6.4-8.2)
[2023-07-14 08:35] LABS: BILIRUBIN,TOTAL 0.3 mg/dL (0.2-1)
[2023-07-14] MEDS: FAMOTIDINE 10 MG TABLET PO SCH (10:56)
[2023-07-14] MEDS: MEMANTINE HCL 10 MG TABLET (FP) PO SCH (10:56)
[2023-07-14] MEDS: POLYETHYLENE GLYCOL (HEALTHYLAX) 3350 17 GM PACKET PO SCH (10:56)
[2023-07-14] MEDS: CITALOPRAM HYDROBROMIDE 20 MG TABLET PO SCH (10:56)
[2023-07-14] MEDS: DIVALPROEX NA *ER* EXTEND REL 250 MG TABLET.SA PO SCH (10:56)
[2023-07-14] MEDS: amLODIPine BESYLATE 10 MG TABLET (FP) PO SCH (10:56)
[2023-07-14] MEDS ORDERED: VALPROATE SODIUM 500 MG/5 ML VIAL IVPB SCH (15:00)
[2023-07-14] MEDS ORDERED: VALPROATE SODIUM INJECTION 500 MG in DEXTROSE 5%-WATER - 100 ML IVPB SCH (16:30)
[2023-07-14] MEDS: VALPROATE SODIUM INJECTION 250 MG in DEXTROSE 5%-WATER - 100 ML IVPB SCH (17:18)
[2023-07-14] MEDS ORDERED: MIRTAZAPINE 15 MG TABLET (FP) PO SCH (22:00)
[2023-07-15] MEDS: ATORVASTATIN CA 10 MG TABLET (FP) PO SCH ×2 (00:36→21:04)
[2023-07-15] MEDS: QUEtiapine FUMARATE 25 MG TABLET PO SCH (00:36)
[2023-07-15] MEDS: MEMANTINE HCL 10 MG TABLET (FP) PO SCH ×3 (00:36→21:04)
[2023-07-15] MEDS: POLYETHYLENE GLYCOL (HEALTHYLAX) 3350 17 GM PACKET PO SCH ×3 (00:36→21:07)
[2023-07-15] MEDS: VALPROATE SODIUM INJECTION 250 MG in DEXTROSE 5%-WATER - 100 ML IVPB SCH ×3 (01:17→20:49)
[2023-07-15 08:43] LABS: HEMATOCRIT 22.9 % (32.4-45.2); HEMOGLOBIN 7.7 GM/dL (10.7-15.3); MCH 30.3 pg (25.7-33.7); MCHC 33.6 g/dl (32.0-36.0); MEAN CELL VOLUME 90.2 fl (80-96); MEAN PLT VOLUME 6.9 fl (7.5-11.1); PLATELET COUNT 367 10^3/uL (134-434); RBC 2.54 M/mm3 (3.60-5.2); RDW 15.8 % (11.6-15.6); WHITE BLOOD COUNT 11.5 K/mm3 (4.0-10.0)
[2023-07-15 09:08] LABS: CALCIUM 7.9 mg/dL (8.5-10.1)
[2023-07-15 09:09] LABS: MAGNESIUM 1.6 mg/dL (1.8-2.4)
[2023-07-15 09:12] LABS: PHOSPHOROUS 2.7 mg/dL (2.5-4.9)
[2023-07-15] MEDS: CITALOPRAM HYDROBROMIDE 20 MG TABLET PO SCH (09:35)
[2023-07-15] MEDS: amLODIPine BESYLATE 10 MG TABLET (FP) PO SCH (09:35)
[2023-07-15] MEDS: FAMOTIDINE 20 MG/50 ML IVPB 20 MG/50 ML MG IVPB SCH (09:36)
[2023-07-15] MEDS: SODIUM CHLORIDE 0.45%/POT 20 MEQ/1,000 ML INFUS.BAG IV SCH (12:32)
[2023-07-15] MEDS ORDERED: MAGNESIUM SULF 50% (8.12 MEQ/2 ML-1 GM VIAL) IVPB ONE ×2 (12:46→15:15)
[2023-07-15] MEDS ORDERED: MAGNESIUM 2GM/50ML STERILE WATER IVPB IVPB ONE (15:15)
[2023-07-15] MEDS ORDERED: MIRTAZAPINE 15 MG TABLET (FP) PO SCH (19:27)
[2023-07-15] MEDS ORDERED: QUEtiapine FUMARATE 25 MG TABLET PO SCH (19:29)
[2023-07-16] MEDS: VALPROATE SODIUM INJECTION 250 MG in DEXTROSE 5%-WATER - 100 ML IVPB SCH ×3 (03:40→21:50)
[2023-07-16] MEDS ORDERED: INSULIN (NOVOLOG) ASPART 100 UNITS/ML 10ML VIAL ONE (06:13)
[2023-07-16 09:03] LABS: HEMATOCRIT 25.2 % (32.4-45.2); HEMOGLOBIN 8.2 GM/dL (10.7-15.3); MCHC 32.4 g/dl (32.0-36.0); MEAN CELL VOLUME 92.5 fl (80-96); PLATELET COUNT 413 10^3/uL (134-434); RBC 2.73 M/mm3 (3.60-5.2); RDW 15.8 % (11.6-15.6); WHITE BLOOD COUNT 12.6 K/mm3 (4.0-10.0)
[2023-07-16 09:41] LABS: POTASSIUM 4.7 mmol/L (3.5-5.1)
[2023-07-16 09:46] LABS: CALCIUM 8.1 mg/dL (8.5-10.1)
[2023-07-16 09:47] LABS: ALBUMIN 2.3 g/dl (3.4-5.0); BLOOD UREA NITROGEN 19.9 mg/dL (7-18); MAGNESIUM 1.8 mg/dL (1.8-2.4)
[2023-07-16 09:49] LABS: PHOSPHOROUS 2.6 mg/dL (2.5-4.9)
[2023-07-16 09:50] LABS: BILIRUBIN,TOTAL 0.3 mg/dL (0.2-1); CREATININE 1.9 mg/dL (0.55-1.3); TOT PROT 6.5 g/dl (6.4-8.2)
[2023-07-16] MEDS: MEMANTINE HCL 10 MG TABLET (FP) PO SCH ×2 (10:47→21:21)
[2023-07-16] MEDS: amLODIPine BESYLATE 10 MG TABLET (FP) PO SCH (10:47)
[2023-07-16] MEDS: CITALOPRAM HYDROBROMIDE 20 MG TABLET PO SCH (10:47)
[2023-07-16] MEDS: POLYETHYLENE GLYCOL (HEALTHYLAX) 3350 17 GM PACKET PO SCH ×2 (10:47→22:01)
[2023-07-16] MEDS: FAMOTIDINE 20 MG/50 ML IVPB 20 MG/50 ML MG IVPB SCH (10:47)
[2023-07-16] MEDS: SODIUM CHLORIDE 0.45%/POT 20 MEQ/1,000 ML INFUS.BAG IV SCH (13:04)
[2023-07-16] MEDS: QUEtiapine FUMARATE 25 MG TABLET PO PRN (21:21)
[2023-07-16] MEDS: ATORVASTATIN CA 10 MG TABLET (FP) PO SCH (21:21)
[2023-07-16] MEDS: ZINC OXIDE 20% TOPICAL OINTMENT 30 GM TUBE TP SCH (22:00)
[2023-07-17] MEDS: VALPROATE SODIUM INJECTION 250 MG in DEXTROSE 5%-WATER - 100 ML IVPB SCH ×3 (02:37→17:33)
[2023-07-17] MEDS: CITALOPRAM HYDROBROMIDE 20 MG TABLET PO SCH (10:19)
[2023-07-17] MEDS: POLYETHYLENE GLYCOL (HEALTHYLAX) 3350 17 GM PACKET PO SCH ×2 (10:20→22:12)
[2023-07-17] MEDS: MEMANTINE HCL 10 MG TABLET (FP) PO SCH ×2 (10:20→22:13)
[2023-07-17] MEDS: FAMOTIDINE 20 MG/50 ML IVPB 20 MG/50 ML MG IVPB SCH (10:20)
[2023-07-17] MEDS: amLODIPine BESYLATE 10 MG TABLET (FP) PO SCH (10:20)
[2023-07-17] MEDS: ZINC OXIDE 20% TOPICAL OINTMENT 30 GM TUBE TP SCH ×2 (11:07→22:21)
[2023-07-17] MEDS: SODIUM CHLORIDE 0.45%/POT 20 MEQ/1,000 ML INFUS.BAG IV SCH (12:32)
[2023-07-17] MEDS: MIRTAZAPINE 15 MG TABLET (FP) PO PRN (22:12)
[2023-07-17] MEDS: ATORVASTATIN CA 10 MG TABLET (FP) PO SCH (22:13)
[2023-07-17] MEDS: QUEtiapine FUMARATE 25 MG TABLET PO PRN (22:13)
[2023-07-17] MEDS: POTASSIUM CHLORIDE 20 MEQ in AMINO ACIDS 4.25%/D5W 1,000 ML IV SCH (22:13)
[2023-07-18] MEDS: VALPROATE SODIUM INJECTION 250 MG in DEXTROSE 5%-WATER - 100 ML IVPB SCH ×4 (02:41→19:12)
[2023-07-18 09:04] LABS: HEMATOCRIT 23.1 % (32.4-45.2); HEMOGLOBIN 7.7 GM/dL (10.7-15.3); MCH 30.2 pg (25.7-33.7); MCHC 33.5 g/dl (32.0-36.0); MEAN CELL VOLUME 90.3 fl (80-96); MEAN PLT VOLUME 7.4 fl (7.5-11.1); PLATELET COUNT 379 10^3/uL (134-434); RBC 2.55 M/mm3 (3.60-5.2); RDW 15.8 % (11.6-15.6); WHITE BLOOD COUNT 12.9 K/mm3 (4.0-10.0)
[2023-07-18] MEDS: FAMOTIDINE 20 MG/50 ML IVPB 20 MG/50 ML MG IVPB SCH (09:26)
[2023-07-18] MEDS: MEMANTINE HCL 10 MG TABLET (FP) PO SCH ×2 (09:27→22:25)
[2023-07-18] MEDS: CITALOPRAM HYDROBROMIDE 20 MG TABLET PO SCH (09:27)
[2023-07-18] MEDS: ZINC OXIDE 20% TOPICAL OINTMENT 30 GM TUBE TP SCH ×2 (09:27→22:26)
[2023-07-18] MEDS: amLODIPine BESYLATE 10 MG TABLET (FP) PO SCH (09:27)
[2023-07-18 09:41] LABS: POTASSIUM 3.9 mmol/L (3.5-5.1)
[2023-07-18 09:49] LABS: CALCIUM 7.9 mg/dL (8.5-10.1)
[2023-07-18 09:50] LABS: ALBUMIN 2.4 g/dl (3.4-5.0); BLOOD UREA NITROGEN 15.3 mg/dL (7-18); MAGNESIUM 1.1 mg/dL (1.8-2.4)
[2023-07-18 09:53] LABS: CREATININE 1.5 mg/dL (0.55-1.3); PHOSPHOROUS 2.1 mg/dL (2.5-4.9)
[2023-07-18 09:54] LABS: BILIRUBIN,TOTAL 0.2 mg/dL (0.2-1); TOT PROT 6.4 g/dl (6.4-8.2)
[2023-07-18] MEDS: POLYETHYLENE GLYCOL (HEALTHYLAX) 3350 17 GM PACKET PO SCH ×2 (12:30→22:26)
[2023-07-18] MEDS ORDERED: NAPH,MB-DB/K PH,MBDB POWDER PACKET PO ONE (13:09)
[2023-07-18] MEDS ORDERED: MAGNESIUM SULF 50% (8.12 MEQ/2 ML-1 GM VIAL) IVPB ONE (13:09)
[2023-07-18] MEDS: QUEtiapine FUMARATE 25 MG TABLET PO PRN (22:25)
[2023-07-18] MEDS: ATORVASTATIN CA 10 MG TABLET (FP) PO SCH (22:25)
[2023-07-19] MEDS: POTASSIUM CHLORIDE 20 MEQ in AMINO ACIDS 4.25%/D5W 1,000 ML IV SCH (00:28)
[2023-07-19] MEDS: VALPROATE SODIUM INJECTION 250 MG in DEXTROSE 5%-WATER - 100 ML IVPB SCH ×3 (01:56→18:05)
[2023-07-19] MEDS ORDERED: GLUCAGON 1 MG KIT ONE (09:48)
[2023-07-19] MEDS ORDERED: FENTANYL CITRATE/PF 50 MCG/ML VIAL ONE (09:48)
[2023-07-19 10:04] LABS: HEMATOCRIT 22.5 % (32.4-45.2); HEMOGLOBIN 7.5 GM/dL (10.7-15.3); MCH 30.7 pg (25.7-33.7); MCHC 33.5 g/dl (32.0-36.0); MEAN CELL VOLUME 91.7 fl (80-96); PLATELET COUNT 375 10^3/uL (134-434); RBC 2.45 M/mm3 (3.60-5.2); RDW 15.9 % (11.6-15.6); WHITE BLOOD COUNT 9.5 K/mm3 (4.0-10.0)
[2023-07-19 10:14] LABS: POTASSIUM 3.8 mmol/L (3.5-5.1)
[2023-07-19] MEDS ORDERED: SODIUM CHLORIDE 500 ML IV SCH (10:35)
[2023-07-19] MEDS ORDERED: FENTANYL CITRATE/PF 50 MCG/ML VIAL IVPUSH ONE (10:37)
[2023-07-19] MEDS ORDERED: GLUCAGON 1 MG KIT IVPUSH ONE (10:40)
[2023-07-19 10:44] LABS: ALBUMIN 2.3 g/dl (3.4-5.0); BLOOD UREA NITROGEN 17.6 mg/dL (7-18); CALCIUM 8.1 mg/dL (8.5-10.1)
[2023-07-19] MEDS ORDERED: MIDAZOLAM HCL 2 MG/2 ML SINGLE DOSE VIAL ONE (10:44)
[2023-07-19 10:45] LABS: MAGNESIUM 1.5 mg/dL (1.8-2.4)
[2023-07-19] MEDS ORDERED: MIDAZOLAM HCL 2 MG/2 ML SINGLE DOSE VIAL IVPUSH ONE (10:46)
[2023-07-19 10:47] LABS: CREATININE 1.5 mg/dL (0.55-1.3); PHOSPHOROUS 2.8 mg/dL (2.5-4.9)
[2023-07-19 10:48] LABS: BILIRUBIN,TOTAL 0.4 mg/dL (0.2-1); TOT PROT 6.1 g/dl (6.4-8.2)
[2023-07-19] MEDS: MEMANTINE HCL 10 MG TABLET (FP) PO SCH ×2 (10:50→21:02)
[2023-07-19] MEDS: amLODIPine BESYLATE 10 MG TABLET (FP) PO SCH (10:50)
[2023-07-19] MEDS: CITALOPRAM HYDROBROMIDE 20 MG TABLET PO SCH (10:50)
[2023-07-19] MEDS: FAMOTIDINE 20 MG/50 ML IVPB 20 MG/50 ML MG IVPB SCH (10:50)
[2023-07-19] MEDS: ZINC OXIDE 20% TOPICAL OINTMENT 30 GM TUBE TP SCH ×2 (10:50→21:04)
[2023-07-19] MEDS: POLYETHYLENE GLYCOL (HEALTHYLAX) 3350 17 GM PACKET PO SCH ×2 (10:50→21:02)
[2023-07-19] MEDS ORDERED: MAGNESIUM SULF 50% (8.12 MEQ/2 ML-1 GM VIAL) IVPB ONE (16:00)
[2023-07-19] MEDS: QUEtiapine FUMARATE 25 MG TABLET PO PRN (20:56)
[2023-07-19] MEDS: ATORVASTATIN CA 10 MG TABLET (FP) PO SCH (21:02)
[2023-07-20] MEDS: POTASSIUM CHLORIDE 20 MEQ in AMINO ACIDS 4.25%/D5W 1,000 ML IV SCH (00:23)
[2023-07-20] MEDS: VALPROATE SODIUM INJECTION 250 MG in DEXTROSE 5%-WATER - 100 ML IVPB SCH ×3 (03:27→17:50)
[2023-07-20] MEDS: FAMOTIDINE 20 MG/50 ML IVPB 20 MG/50 ML MG IVPB SCH (09:16)
[2023-07-20] MEDS: MEMANTINE HCL 10 MG TABLET (FP) PO SCH ×2 (09:18→22:01)
[2023-07-20] MEDS: POLYETHYLENE GLYCOL (HEALTHYLAX) 3350 17 GM PACKET PO SCH ×2 (09:18→22:00)
[2023-07-20] MEDS: CITALOPRAM HYDROBROMIDE 20 MG TABLET PO SCH (09:18)
[2023-07-20] MEDS: amLODIPine BESYLATE 10 MG TABLET (FP) PO SCH (09:20)
[2023-07-20] MEDS: CEFTRIAXONE 1 GM in DEXTROSE 5%-WATER - 50 ML IVPB SCH (12:23)
[2023-07-20] MEDS: ACETAMINOPHEN 500 MG TABLET (FP) PO PRN ×2 (12:24→23:57)
[2023-07-20] MEDS: ZINC OXIDE 20% TOPICAL OINTMENT 30 GM TUBE TP SCH ×2 (13:00→22:01)
[2023-07-20] MEDS: HEPARIN NA (PORCINE) 5,000 UNITS/ML 1ML VIAL SQ SCH (22:00)
[2023-07-20] MEDS: ATORVASTATIN CA 10 MG TABLET (FP) PO SCH (22:01)
[2023-07-20] MEDS: QUEtiapine FUMARATE 25 MG TABLET PO PRN (23:54)
[2023-07-21] MEDS: VALPROATE SODIUM INJECTION 250 MG in DEXTROSE 5%-WATER - 100 ML IVPB SCH ×3 (01:13→21:25)
[2023-07-21] MEDS: ACETAMINOPHEN 500 MG TABLET (FP) PO PRN ×2 (08:19→14:04)
[2023-07-21] MEDS: HEPARIN NA (PORCINE) 5,000 UNITS/ML 1ML VIAL SQ SCH ×2 (09:45→21:24)
[2023-07-21] MEDS: amLODIPine BESYLATE 10 MG TABLET (FP) PO SCH (09:46)
[2023-07-21] MEDS: POLYETHYLENE GLYCOL (HEALTHYLAX) 3350 17 GM PACKET PO SCH ×2 (09:46→21:24)
[2023-07-21] MEDS: MEMANTINE HCL 10 MG TABLET (FP) PO SCH ×2 (09:46→21:24)
[2023-07-21] MEDS: CITALOPRAM HYDROBROMIDE 20 MG TABLET PO SCH (09:46)
[2023-07-21] MEDS: ZINC OXIDE 20% TOPICAL OINTMENT 30 GM TUBE TP SCH ×2 (09:48→21:25)
[2023-07-21 10:45] LABS: BASO % 0.6 % (0-2.0); EOS % 1.9 % (0-4.5); HEMATOCRIT 19.6 % (32.4-45.2); LYMPH % 9.7 % (8-40); MCH 30.4 pg (25.7-33.7); MCHC 33.6 g/dl (32.0-36.0); MEAN CELL VOLUME 90.4 fl (80-96); MEAN PLT VOLUME 7.4 fl (7.5-11.1); MONO % 8.8 % (3.8-10.2); PLATELET COUNT 326 10^3/uL (134-434); RBC 2.16 M/mm3 (3.60-5.2); RDW 16.1 % (11.6-15.6); WHITE BLOOD COUNT 11.3 K/mm3 (4.0-10.0)
[2023-07-21 11:03] LABS: HEMOGLOBIN 6.6 GM/dL (10.7-15.3)
[2023-07-21 11:08] LABS: POTASSIUM 3.5 mmol/L (3.5-5.1)
[2023-07-21 11:14] LABS: ALBUMIN 2.2 g/dl (3.4-5.0); BLOOD UREA NITROGEN 19.1 mg/dL (7-18); CALCIUM 7.9 mg/dL (8.5-10.1)
[2023-07-21 11:17] LABS: CREATININE 1.4 mg/dL (0.55-1.3)
[2023-07-21 11:19] LABS: BILIRUBIN,TOTAL 0.2 mg/dL (0.2-1); TOT PROT 5.8 g/dl (6.4-8.2)
[2023-07-21] MEDS: FAMOTIDINE 20 MG/50 ML IVPB 20 MG/50 ML MG IVPB SCH (12:09)
[2023-07-21] MEDS: PANTOPRAZOLE SODIUM 40 MG VIAL IVPUSH SCH (12:31)
[2023-07-21] MEDS: CEFTRIAXONE 1 GM in DEXTROSE 5%-WATER - 50 ML IVPB SCH (12:36)
[2023-07-21] MEDS: ATORVASTATIN CA 10 MG TABLET (FP) PO SCH (21:24)
[2023-07-21] MEDS: QUEtiapine FUMARATE 25 MG TABLET PO PRN (21:24)
[2023-07-22] MEDS: VALPROATE SODIUM INJECTION 250 MG in DEXTROSE 5%-WATER - 100 ML IVPB SCH ×3 (03:01→17:57)
[2023-07-22] MEDS: HEPARIN NA (PORCINE) 5,000 UNITS/ML 1ML VIAL SQ SCH ×2 (10:42→21:06)
[2023-07-22] MEDS: MEMANTINE HCL 10 MG TABLET (FP) PO SCH ×2 (10:42→21:05)
[2023-07-22] MEDS: POLYETHYLENE GLYCOL (HEALTHYLAX) 3350 17 GM PACKET PO SCH ×2 (10:42→21:06)
[2023-07-22] MEDS: CITALOPRAM HYDROBROMIDE 20 MG TABLET PO SCH (10:42)
[2023-07-22] MEDS: ACETAMINOPHEN 500 MG TABLET (FP) PO PRN (10:42)
[2023-07-22] MEDS: amLODIPine BESYLATE 10 MG TABLET (FP) PO SCH (10:44)
[2023-07-22] MEDS: CEFTRIAXONE 1 GM in DEXTROSE 5%-WATER - 50 ML IVPB SCH (10:45)
[2023-07-22 11:31] LABS: BASO % 0.8 % (0-2.0); EOS % 3.3 % (0-4.5); HEMATOCRIT 26.9 % (32.4-45.2); HEMOGLOBIN 9.2 GM/dL (10.7-15.3); MCH 30.7 pg (25.7-33.7); MCHC 34.2 g/dl (32.0-36.0); MEAN PLT VOLUME 7.7 fl (7.5-11.1); MONO % 8.8 % (3.8-10.2); NEUT % 70.1 % (42.8-82.8); PLATELET COUNT 340 10^3/uL (134-434); RBC 2.99 M/mm3 (3.60-5.2); WHITE BLOOD COUNT 10.2 K/mm3 (4.0-10.0)
[2023-07-22 11:55] LABS: POTASSIUM 4.3 mmol/L (3.5-5.1)
[2023-07-22 12:00] LABS: ALBUMIN 2.2 g/dl (3.4-5.0); BLOOD UREA NITROGEN 20.7 mg/dL (7-18); CALCIUM 7.8 mg/dL (8.5-10.1); MAGNESIUM 1.5 mg/dL (1.8-2.4)
[2023-07-22] MEDS: PANTOPRAZOLE SODIUM 40 MG VIAL IVPUSH SCH (12:04)
[2023-07-22] MEDS: ZINC OXIDE 20% TOPICAL OINTMENT 30 GM TUBE TP SCH ×2 (12:04→21:06)
[2023-07-22 12:05] LABS: BILIRUBIN,TOTAL 0.2 mg/dL (0.2-1); CREATININE 1.4 mg/dL (0.55-1.3)
[2023-07-22] MEDS: ATORVASTATIN CA 10 MG TABLET (FP) PO SCH (21:05)
[2023-07-22] MEDS: QUEtiapine FUMARATE 25 MG TABLET PO PRN (21:06)
[2023-07-23] MEDS: VALPROATE SODIUM INJECTION 250 MG in DEXTROSE 5%-WATER - 100 ML IVPB SCH ×3 (01:37→19:10)
[2023-07-23] MEDS: POLYETHYLENE GLYCOL (HEALTHYLAX) 3350 17 GM PACKET PO SCH ×2 (09:45→21:09)
[2023-07-23] MEDS: CEFTRIAXONE 1 GM in DEXTROSE 5%-WATER - 50 ML IVPB SCH (10:19)
[2023-07-23] MEDS: amLODIPine BESYLATE 10 MG TABLET (FP) PO SCH (10:22)
[2023-07-23] MEDS: MEMANTINE HCL 10 MG TABLET (FP) PO SCH ×2 (10:22→21:08)
[2023-07-23] MEDS: CITALOPRAM HYDROBROMIDE 20 MG TABLET PO SCH (10:22)
[2023-07-23] MEDS: PANTOPRAZOLE SODIUM 40 MG VIAL IVPUSH SCH (10:23)
[2023-07-23] MEDS: HEPARIN NA (PORCINE) 5,000 UNITS/ML 1ML VIAL SQ SCH ×2 (10:24→21:09)
[2023-07-23] MEDS: ZINC OXIDE 20% TOPICAL OINTMENT 30 GM TUBE TP SCH ×2 (10:26→21:09)
[2023-07-23 13:13] LABS: BASO % 1.1 % (0-2.0); EOS % 3.1 % (0-4.5); HEMATOCRIT 26.9 % (32.4-45.2); HEMOGLOBIN 9.3 GM/dL (10.7-15.3); MCH 30.8 pg (25.7-33.7); MCHC 34.4 g/dl (32.0-36.0); MEAN CELL VOLUME 89.5 fl (80-96); MEAN PLT VOLUME 8.5 fl (7.5-11.1); MONO % 9.1 % (3.8-10.2); NEUT % 73.7 % (42.8-82.8); PLATELET COUNT 352 10^3/uL (134-434); RBC 3.01 M/mm3 (3.60-5.2); RDW 15.6 % (11.6-15.6)
[2023-07-23 14:11] LABS: POTASSIUM 4.1 mmol/L (3.5-5.1)
[2023-07-23 14:13] LABS: CALCIUM 8.4 mg/dL (8.5-10.1)
[2023-07-23 14:14] LABS: BLOOD UREA NITROGEN 21.2 mg/dL (7-18)
[2023-07-23 14:17] LABS: CREATININE 1.3 mg/dL (0.55-1.3)
[2023-07-23] MEDS: ACETAMINOPHEN 500 MG TABLET (FP) PO PRN (16:12)
[2023-07-23] MEDS ORDERED: ACETAMINOPHEN 1000 MG/100 ML BAG IVPB ONE (16:22)
[2023-07-23] MEDS: ATORVASTATIN CA 10 MG TABLET (FP) PO SCH (21:08)
[2023-07-23] MEDS: QUEtiapine FUMARATE 25 MG TABLET PO PRN (21:09)
[2023-07-23] MEDS ORDERED: ACETAMINOPHEN 1000 MG/100 ML BAG IVPB PRN (23:00)
[2023-07-24] MEDS: VALPROATE SODIUM INJECTION 250 MG in DEXTROSE 5%-WATER - 100 ML IVPB SCH ×3 (01:58→17:53)
[2023-07-24] MEDS: CITALOPRAM HYDROBROMIDE 20 MG TABLET PO SCH (10:30)
[2023-07-24] MEDS: MEMANTINE HCL 10 MG TABLET (FP) PO SCH ×2 (10:30→21:35)
[2023-07-24] MEDS: HEPARIN NA (PORCINE) 5,000 UNITS/ML 1ML VIAL SQ SCH ×2 (10:30→21:35)
[2023-07-24] MEDS: PANTOPRAZOLE SODIUM 40 MG VIAL IVPUSH SCH (10:30)
[2023-07-24 10:31] LABS: BASO % 0.9 % (0-2.0); HEMATOCRIT 25.9 % (32.4-45.2); HEMOGLOBIN 8.8 GM/dL (10.7-15.3); LYMPH % 17.5 % (8-40); MCH 30.6 pg (25.7-33.7); MCHC 33.8 g/dl (32.0-36.0); MEAN CELL VOLUME 90.5 fl (80-96); MEAN PLT VOLUME 7.9 fl (7.5-11.1); NEUT % 66.6 % (42.8-82.8); PLATELET COUNT 390 10^3/uL (134-434); RBC 2.86 M/mm3 (3.60-5.2); RDW 15.3 % (11.6-15.6); WHITE BLOOD COUNT 9.2 K/mm3 (4.0-10.0)
[2023-07-24] MEDS: QUEtiapine FUMARATE 25 MG TABLET GT SCH ×2 (10:31→21:35)
[2023-07-24] MEDS: POLYETHYLENE GLYCOL (HEALTHYLAX) 3350 17 GM PACKET PO SCH ×2 (10:31→21:35)
[2023-07-24] MEDS: CEFTRIAXONE 1 GM in DEXTROSE 5%-WATER - 50 ML IVPB SCH (10:31)
[2023-07-24 10:51] LABS: POTASSIUM 4.1 mmol/L (3.5-5.1)
[2023-07-24 10:58] LABS: BLOOD UREA NITROGEN 18.3 mg/dL (7-18)
[2023-07-24 11:03] LABS: ALBUMIN 2.3 g/dl (3.4-5.0); CALCIUM 8.2 mg/dL (8.5-10.1); MAGNESIUM 1.6 mg/dL (1.8-2.4)
[2023-07-24 11:06] LABS: CREATININE 1.2 mg/dL (0.55-1.3)
[2023-07-24] MEDS: ZINC OXIDE 20% TOPICAL OINTMENT 30 GM TUBE TP SCH ×2 (11:06→21:35)
[2023-07-24 11:07] LABS: BILIRUBIN,TOTAL 0.2 mg/dL (0.2-1); TOT PROT 6.2 g/dl (6.4-8.2)
[2023-07-24] MEDS ORDERED: MAGNESIUM OXIDE 400 MG TABLET (FP) PO ONE (13:30)
[2023-07-24] MEDS: ATORVASTATIN CA 10 MG TABLET (FP) PO SCH (21:35)
[2023-07-25] MEDS: VALPROATE SODIUM INJECTION 250 MG in DEXTROSE 5%-WATER - 100 ML IVPB SCH ×3 (01:58→23:11)
[2023-07-25] MEDS: AMINO ACIDS/PROTEIN HYDROLYS 30 ML LIQUID.PKT PO SCH (08:41)
[2023-07-25] MEDS: PANTOPRAZOLE SODIUM 40 MG VIAL IVPUSH SCH (09:58)
[2023-07-25] MEDS: CEFTRIAXONE 1 GM in DEXTROSE 5%-WATER - 50 ML IVPB SCH (09:58)
[2023-07-25] MEDS: POLYETHYLENE GLYCOL (HEALTHYLAX) 3350 17 GM PACKET PO SCH ×2 (09:59→23:11)
[2023-07-25] MEDS: MEMANTINE HCL 10 MG TABLET (FP) PO SCH ×2 (09:59→22:10)
[2023-07-25] MEDS: HEPARIN NA (PORCINE) 5,000 UNITS/ML 1ML VIAL SQ SCH ×2 (09:59→22:08)
[2023-07-25] MEDS: CITALOPRAM HYDROBROMIDE 20 MG TABLET PO SCH (09:59)
[2023-07-25] MEDS: QUEtiapine FUMARATE 25 MG TABLET GT SCH ×2 (10:00→22:09)
[2023-07-25] MEDS: ZINC OXIDE 20% TOPICAL OINTMENT 30 GM TUBE TP SCH ×2 (10:00→23:11)
[2023-07-25 11:44] LABS: ALBUMIN 2.2 g/dl (3.4-5.0); CALCIUM 8.4 mg/dL (8.5-10.1); HEMATOCRIT 26.7 % (32.4-45.2); HEMOGLOBIN 8.9 GM/dL (10.7-15.3); MCH 30.4 pg (25.7-33.7); MCHC 33.1 g/dl (32.0-36.0); MEAN CELL VOLUME 91.7 fl (80-96); MEAN PLT VOLUME 7.8 fl (7.5-11.1); PLATELET COUNT 370 10^3/uL (134-434); RBC 2.92 M/mm3 (3.60-5.2); RDW 15.6 % (11.6-15.6); WHITE BLOOD COUNT 7.8 K/mm3 (4.0-10.0)
[2023-07-25 11:45] LABS: BLOOD UREA NITROGEN 21.4 mg/dL (7-18); MAGNESIUM 1.7 mg/dL (1.8-2.4)
[2023-07-25 11:47] LABS: CREATININE 1.4 mg/dL (0.55-1.3)
[2023-07-25 11:49] LABS: BILIRUBIN,TOTAL 0.3 mg/dL (0.2-1); PHOSPHOROUS 2.7 mg/dL (2.5-4.9); TOT PROT 6.2 g/dl (6.4-8.2)
[2023-07-25 12:30] LABS: ANISOCYTOSIS 0; HELMET CELLS 0; HOWELL-JOLLY BODIES 0; MACROCYTOSIS 0; OVALOCYTE 0; ROULEAU 0; SICKELED CELLS 0; TARGET CELLS 0; TEAR DROP CELLS 0; TOXIC GRANULATION 0
[2023-07-25] MEDS ORDERED: MAGNESIUM 2GM/50ML STERILE WATER IVPB IVPB ONE (13:07)
[2023-07-25] MEDS: MIRTAZAPINE 15 MG TABLET (FP) PO PRN (20:11)
[2023-07-25] MEDS: ATORVASTATIN CA 10 MG TABLET (FP) PO SCH (22:10)
[2023-07-26] MEDS: VALPROATE SODIUM INJECTION 250 MG in DEXTROSE 5%-WATER - 100 ML IVPB SCH ×3 (02:09→18:09)
[2023-07-26] MEDS: AMINO ACIDS/PROTEIN HYDROLYS 30 ML LIQUID.PKT PO SCH (08:50)
[2023-07-26] MEDS: CEFTRIAXONE 1 GM in DEXTROSE 5%-WATER - 50 ML IVPB SCH (09:36)
[2023-07-26] MEDS: POLYETHYLENE GLYCOL (HEALTHYLAX) 3350 17 GM PACKET PO SCH ×2 (09:36→21:12)
[2023-07-26] MEDS: CITALOPRAM HYDROBROMIDE 20 MG TABLET PO SCH (09:37)
[2023-07-26] MEDS: MEMANTINE HCL 10 MG TABLET (FP) PO SCH ×2 (09:37→21:11)
[2023-07-26] MEDS: PANTOPRAZOLE SODIUM 40 MG VIAL IVPUSH SCH (09:37)
[2023-07-26] MEDS: HEPARIN NA (PORCINE) 5,000 UNITS/ML 1ML VIAL SQ SCH ×2 (09:37→21:12)
[2023-07-26] MEDS: QUEtiapine FUMARATE 25 MG TABLET GT SCH ×2 (09:39→21:12)
[2023-07-26] MEDS: ZINC OXIDE 20% TOPICAL OINTMENT 30 GM TUBE TP SCH ×2 (09:43→21:13)
[2023-07-26 11:17] LABS: HEMATOCRIT 25.4 % (32.4-45.2); HEMOGLOBIN 8.6 GM/dL (10.7-15.3); MCH 30.5 pg (25.7-33.7); MCHC 33.7 g/dl (32.0-36.0); MEAN CELL VOLUME 90.5 fl (80-96); MEAN PLT VOLUME 7.5 fl (7.5-11.1); PLATELET COUNT 360 10^3/uL (134-434); RBC 2.81 M/mm3 (3.60-5.2); RDW 15.7 % (11.6-15.6); WHITE BLOOD COUNT 6.8 K/mm3 (4.0-10.0)
[2023-07-26 11:54] LABS: POTASSIUM 4.3 mmol/L (3.5-5.1)
[2023-07-26 13:00] LABS: ALBUMIN 2.2 g/dl (3.4-5.0); BLOOD UREA NITROGEN 24.5 mg/dL (7-18)
[2023-07-26 13:02] LABS: BILIRUBIN,TOTAL 0.3 mg/dL (0.2-1); CREATININE 1.4 mg/dL (0.55-1.3); TOT PROT 6.1 g/dl (6.4-8.2)
[2023-07-26] MEDS: ATORVASTATIN CA 10 MG TABLET (FP) PO SCH (21:12)
[2023-07-27] MEDS: VALPROATE SODIUM INJECTION 250 MG in DEXTROSE 5%-WATER - 100 ML IVPB SCH ×3 (02:05→17:34)
[2023-07-27] MEDS: AMINO ACIDS/PROTEIN HYDROLYS 30 ML LIQUID.PKT PO SCH (09:00)
[2023-07-27 09:41] LABS: HEMATOCRIT 27.2 % (32.4-45.2); MCH 30.2 pg (25.7-33.7); MEAN CELL VOLUME 91.6 fl (80-96); MEAN PLT VOLUME 7.7 fl (7.5-11.1); PLATELET COUNT 398 10^3/uL (134-434); RBC 2.97 M/mm3 (3.60-5.2); RDW 15.2 % (11.6-15.6); WHITE BLOOD COUNT 6.2 K/mm3 (4.0-10.0)
[2023-07-27] MEDS: CITALOPRAM HYDROBROMIDE 20 MG TABLET PO SCH (09:46)
[2023-07-27] MEDS: HEPARIN NA (PORCINE) 5,000 UNITS/ML 1ML VIAL SQ SCH ×2 (09:46→21:19)
[2023-07-27] MEDS: MEMANTINE HCL 10 MG TABLET (FP) PO SCH ×2 (09:46→21:20)
[2023-07-27] MEDS: QUEtiapine FUMARATE 25 MG TABLET GT SCH ×2 (09:46→21:20)
[2023-07-27] MEDS: ZINC OXIDE 20% TOPICAL OINTMENT 30 GM TUBE TP SCH ×2 (09:47→21:21)
[2023-07-27] MEDS: PANTOPRAZOLE SODIUM 40 MG VIAL IVPUSH SCH (09:52)
[2023-07-27 09:53] LABS: POTASSIUM 4.4 mmol/L (3.5-5.1)
[2023-07-27] MEDS: POLYETHYLENE GLYCOL (HEALTHYLAX) 3350 17 GM PACKET PO SCH ×2 (10:07→21:21)
[2023-07-27 10:12] LABS: CALCIUM 8.5 mg/dL (8.5-10.1)
[2023-07-27 10:13] LABS: ALBUMIN 2.4 g/dl (3.4-5.0); BLOOD UREA NITROGEN 26.8 mg/dL (7-18)
[2023-07-27 10:15] LABS: PHOSPHOROUS 3.1 mg/dL (2.5-4.9)
[2023-07-27 10:16] LABS: CREATININE 1.4 mg/dL (0.55-1.3)
[2023-07-27 10:17] LABS: BILIRUBIN,TOTAL 0.4 mg/dL (0.2-1); TOT PROT 6.5 g/dl (6.4-8.2)
[2023-07-27 10:39] LABS: ANISOCYTOSIS 2+; MACROCYTOSIS 0; OVALOCYTE 1+; TARGET CELLS 1+
[2023-07-27] MEDS: ATORVASTATIN CA 10 MG TABLET (FP) PO SCH (21:20)
[2023-07-28] MEDS: VALPROATE SODIUM INJECTION 250 MG in DEXTROSE 5%-WATER - 100 ML IVPB SCH ×3 (03:09→17:34)
[2023-07-28] MEDS: AMINO ACIDS/PROTEIN HYDROLYS 30 ML LIQUID.PKT PO SCH (08:56)
[2023-07-28] MEDS: HEPARIN NA (PORCINE) 5,000 UNITS/ML 1ML VIAL SQ SCH ×2 (10:03→21:05)
[2023-07-28] MEDS: QUEtiapine FUMARATE 25 MG TABLET GT SCH ×2 (10:03→23:17)
[2023-07-28] MEDS: CITALOPRAM HYDROBROMIDE 20 MG TABLET PO SCH (10:03)
[2023-07-28] MEDS: PANTOPRAZOLE SODIUM 40 MG VIAL IVPUSH SCH (10:03)
[2023-07-28] MEDS: POLYETHYLENE GLYCOL (HEALTHYLAX) 3350 17 GM PACKET PO SCH (10:04)
[2023-07-28] MEDS: MEMANTINE HCL 10 MG TABLET (FP) PO SCH ×2 (10:04→23:17)
[2023-07-28] MEDS ORDERED: QUEtiapine FUMARATE 25 MG TABLET PO ONE (10:10)
[2023-07-28] MEDS: ZINC OXIDE 20% TOPICAL OINTMENT 30 GM TUBE TP SCH ×2 (10:29→21:06)
[2023-07-28] MEDS ORDERED: BANATROL PLUS POWDER PACKET GT SCH (15:00)
[2023-07-28] MEDS ORDERED: BANATROL PLUS POWDER PACKET PO SCH (22:00)
[2023-07-28] MEDS: ATORVASTATIN CA 10 MG TABLET (FP) PO SCH (23:16)
[2023-07-28] MEDS: MIRTAZAPINE 15 MG TABLET (FP) PO PRN (23:17)
[2023-07-29] MEDS: VALPROATE SODIUM INJECTION 250 MG in DEXTROSE 5%-WATER - 100 ML IVPB SCH ×2 (02:30→11:39)
[2023-07-29] MEDS: FAMOTIDINE 20 MG/2.5 ML ORAL LIQUID PEG SCH (09:56)
[2023-07-29] MEDS: MEMANTINE HCL 10 MG TABLET (FP) PO SCH ×2 (09:56→21:44)
[2023-07-29] MEDS: HEPARIN NA (PORCINE) 5,000 UNITS/ML 1ML VIAL SQ SCH ×2 (09:56→21:53)
[2023-07-29] MEDS: CITALOPRAM HYDROBROMIDE 20 MG TABLET PO SCH (09:56)
[2023-07-29] MEDS: QUEtiapine FUMARATE 25 MG TABLET GT SCH (09:56)
[2023-07-29] MEDS: AMINO ACIDS/PROTEIN HYDROLYS 30 ML LIQUID.PKT PO SCH (09:57)
[2023-07-29 10:35] LABS: HEMOGLOBIN 9.7 GM/dL (10.7-15.3); MCH 30.2 pg (25.7-33.7); MCHC 33.5 g/dl (32.0-36.0); MEAN CELL VOLUME 90.3 fl (80-96); MEAN PLT VOLUME 7.7 fl (7.5-11.1); PLATELET COUNT 427 10^3/uL (134-434); RBC 3.21 M/mm3 (3.60-5.2); RDW 15.5 % (11.6-15.6); WHITE BLOOD COUNT 8.2 K/mm3 (4.0-10.0)
[2023-07-29 10:57] LABS: BLOOD UREA NITROGEN 31.3 mg/dL (7-18); CALCIUM 8.6 mg/dL (8.5-10.1)
[2023-07-29 11:01] LABS: CREATININE 1.3 mg/dL (0.55-1.3)
[2023-07-29] MEDS: ZINC OXIDE 20% TOPICAL OINTMENT 30 GM TUBE TP SCH ×2 (11:40→21:46)
[2023-07-29] MEDS: MIRTAZAPINE 15 MG TABLET (FP) PO PRN (19:19)
[2023-07-29] MEDS ORDERED: QUEtiapine FUMARATE 25 MG TABLET ONE ×2 (21:39→21:46)
[2023-07-29] MEDS: ATORVASTATIN CA 10 MG TABLET (FP) PO SCH (21:44)
[2023-07-29] MEDS ORDERED: QUEtiapine FUMARATE 50 MG TABLET GT SCH (22:00)
[2023-07-30] MEDS: VALPROATE SODIUM INJECTION 250 MG in DEXTROSE 5%-WATER - 100 ML IVPB SCH ×3 (00:57→09:51)
[2023-07-30] MEDS ORDERED: MELATONIN 5 MG TABLETS PO ONE (01:31)
[2023-07-30] MEDS ORDERED: QUEtiapine FUMARATE 25 MG TABLET GT SCH (07:00)
[2023-07-30] MEDS: AMINO ACIDS/PROTEIN HYDROLYS 30 ML LIQUID.PKT PO SCH (08:52)
[2023-07-30] MEDS: FAMOTIDINE 20 MG/2.5 ML ORAL LIQUID PEG SCH (09:51)
[2023-07-30] MEDS: MEMANTINE HCL 10 MG TABLET (FP) PO SCH (09:51)
[2023-07-30] MEDS: CITALOPRAM HYDROBROMIDE 20 MG TABLET PO SCH (09:51)
[2023-07-30] MEDS: HEPARIN NA (PORCINE) 5,000 UNITS/ML 1ML VIAL SQ SCH (09:51)
[2023-07-30] MEDS: ZINC OXIDE 20% TOPICAL OINTMENT 30 GM TUBE TP SCH (10:20)
[2023-07-30 10:27] LABS: HEMOGLOBIN 8.9 GM/dL (10.7-15.3); MCH 30.2 pg (25.7-33.7); MCHC 32.8 g/dl (32.0-36.0); MEAN CELL VOLUME 92.1 fl (80-96); MEAN PLT VOLUME 7.6 fl (7.5-11.1); PLATELET COUNT 417 10^3/uL (134-434); RBC 2.93 M/mm3 (3.60-5.2)
[2023-07-30 10:50] LABS: POTASSIUM 4.1 mmol/L (3.5-5.1)
[2023-07-30 10:53] LABS: CALCIUM 8.8 mg/dL (8.5-10.1)
[2023-07-30 10:54] LABS: BLOOD UREA NITROGEN 37.6 mg/dL (7-18)
[2023-07-30 10:57] LABS: CREATININE 1.4 mg/dL (0.55-1.3)
[2023-07-30 15:17] VITALS: BP 115/60; PULSE 88; RESP 16; TEMP 98.1
== END 2023-07-30 18:00 | DRG 699 ==
LOC: JER 18:54 → JERBED 19:45 → J6S 07-04 07:41 → J4W 07-08 13:45 → J6S 07-08 14:03 → J4W 07-08 17:47 → J5S 07-18 17:43
PROVIDERS: ADMIT Internal Medicine
PROC: 0TJB8ZZ Inspection of Bladder, Via Natural or Artificial Opening Endoscopic (ICD-10-PCS; 2023-07-05)
PROC: 0T9B70Z Drainage of Bladder with Drainage Device, Via Natural or Artificial Opening (ICD-10-PCS; 2023-07-05)
PROC: 0T9130Z Drainage of Left Kidney with Drainage Device, Percutaneous Approach (ICD-10-PCS; principal; 2023-07-08)
PROC: 0T9030Z Drainage of Right Kidney with Drainage Device, Percutaneous Approach (ICD-10-PCS; 2023-07-08)
PROC: 0DH63UZ Insertion of Feeding Device into Stomach, Percutaneous Approach (ICD-10-PCS; 2023-07-19)
PROC: 3E0G76Z Introduction of Nutritional Substance into Upper GI, Via Natural or Artificial Opening (ICD-10-PCS; 2023-07-19)
DX: N13.9 Obstructive and reflux uropathy, unspecified (principal); D62 Acute posthemorrhagic anemia; E87.20 Acidosis, unspecified; N17.9 Acute kidney failure, unspecified; E87.1 Hypo-osmolality and hyponatremia; N13.30 Unspecified hydronephrosis; F03.90 Unspecified dementia, unspecified severity, without behavioral disturbance, psychotic disturbance, mood disturbance, and anxiety; I10 Essential (primary) hypertension; E78.5 Hyperlipidemia, unspecified; R62.7 Adult failure to thrive; K59.00 Constipation, unspecified; E87.5 Hyperkalemia; D64.9 Anemia, unspecified; E83.39 Other disorders of phosphorus metabolism; R31.0 Gross hematuria; F32.A Depression, unspecified; L30.4 Erythema intertrigo
CPT/HCPCS: 0241U-QW; 36415; 36430; 49440; 50432; 70450-TC; 71045-TC-FY; 74176-TC; 76700-TC; 76775-TC; 80048; 80053; 80164; 81003; 82272; 82550; 82962; 83516; 83520; 83540; 83550; 83735; 84100; 84484; 85025; 85027; 85045; 85610; 86038; 86225; 86256; 86850; 86900; 86901; 86922; 87086; 87635; 93005; 93010; 93971-TC; 94760; 97116-GP; 97162-GP; 99285-25; C1758; J1644; J3480; P9038; P9058

== ENCOUNTER 2023-08-04 17:56 | Inpatient (IN) | payer OTHER ==
[2023-08-04 21:18] LABS: BASO % 1.2 % (0-2.0); EOS % 1.9 % (0-4.5); HEMATOCRIT 27.4 % (32.4-45.2); HEMOGLOBIN 9.1 GM/dL (10.7-15.3); LYMPH % 25.2 % (8-40); MCH 30.2 pg (25.7-33.7); MCHC 33.3 g/dl (32.0-36.0); MEAN CELL VOLUME 90.8 fl (80-96); MEAN PLT VOLUME 7.4 fl (7.5-11.1); MONO % 7.7 % (3.8-10.2); PLATELET COUNT 497 10^3/uL (134-434); RBC 3.01 M/mm3 (3.60-5.2); RDW 16.2 % (11.6-15.6); WHITE BLOOD COUNT 11.5 K/mm3 (4.0-10.0)
[2023-08-04 21:34] LABS: ACTIVATED PTT 31.5 SECONDS (25.2-36.5); INR 1.12 (0.83-1.09)
[2023-08-04 21:37] LABS: POTASSIUM 4.5 mmol/L (3.5-5.1)
[2023-08-04 21:39] LABS: BLOOD UREA NITROGEN 34.4 mg/dL (7-18); CALCIUM 8.5 mg/dL (8.5-10.1)
[2023-08-04 21:42] LABS: CREATININE 2.3 mg/dL (0.55-1.3)
[2023-08-04 21:44] LABS: BILIRUBIN,TOTAL 0.2 mg/dL (0.2-1); TOT PROT 7.2 g/dl (6.4-8.2)
[2023-08-04 21:50] LABS: ALBUMIN 2.9 g/dl (3.4-5.0)
[2023-08-04] MEDS ORDERED: SODIUM CHLORIDE 0.9% 500 ML INFUS.BAG IV ONE (23:09)
[2023-08-05] MEDS ORDERED: CYCLOBENZAPRINE HCL 5 MG TABLET PO ONE (00:16)
[2023-08-05 03:54] LABS: EPI CELLS 4 /uL (0-25.1); HYALINE CASTS 1 /uL (0-3.1); URINE APPEARANCE CLEAR; URINE BACTERIA 6870 /uL (0-1359); URINE BILIRUBIN NEGATIVE (NEGATIVE); URINE COLOR YELLOW; URINE GLUCOSE (UA) NEGATIVE (NEGATIVE); URINE KETONE TRACE (NEGATIVE); URINE LEUK ESTERASE 2+ (NEGATIVE); URINE NITRITE NEGATIVE (NEGATIVE); URINE PROTEIN 3+ (NEGATIVE); URINE RBC 222 /uL (0-23.9); URINE UROBILINOGEN 0.2 mg/dL (0.2-1.0); URINE WBC 302 /uL (0-25.8)
[2023-08-05] MEDS ORDERED: SODIUM CHLORIDE 0.45% 1,000 ML IV SCH (04:15)
[2023-08-05 07:02] LABS: BASO % 1.1 % (0-2.0); EOS % 2.2 % (0-4.5); HEMATOCRIT 24.2 % (32.4-45.2); HEMOGLOBIN 8.1 GM/dL (10.7-15.3); LYMPH % 21.2 % (8-40); MCHC 33.6 g/dl (32.0-36.0); MEAN CELL VOLUME 92.2 fl (80-96); MEAN PLT VOLUME 7.4 fl (7.5-11.1); MONO % 9.2 % (3.8-10.2); NEUT % 66.3 % (42.8-82.8); PLATELET COUNT 442 10^3/uL (134-434); RBC 2.63 M/mm3 (3.60-5.2); RDW 16.2 % (11.6-15.6); WHITE BLOOD COUNT 10.5 K/mm3 (4.0-10.0)
[2023-08-05 07:21] LABS: POTASSIUM 4.5 mmol/L (3.5-5.1)
[2023-08-05 07:22] LABS: CALCIUM 8.3 mg/dL (8.5-10.1)
[2023-08-05 07:26] LABS: CREATININE 2.2 mg/dL (0.55-1.3); PHOSPHOROUS 4.5 mg/dL (2.5-4.9)
[2023-08-05] MEDS ORDERED: IRON SUCROSE INJECTION 200 MG in SODIUM CHLORIDE 90 ML IVPB ONE (14:25)
[2023-08-05] MEDS ORDERED: CEFTRIAXONE 1 GM in DEXTROSE 5%-WATER - 50 ML IVPB ONE (14:27)
[2023-08-05] MEDS ORDERED: DIVALPROEX NA *ER* EXTEND REL 250 MG TABLET.SA ONE (16:36)
[2023-08-05] MEDS ORDERED: ACETAMINOPHEN 325 MG TABLET (FP) ONE (16:36)
[2023-08-05] MEDS ORDERED: CEFTRIAXONE 1 GM/50 ML BAG ONE (16:36)
[2023-08-05] MEDS: SODIUM CHLORIDE 0.45% 1,000 ML IV SCH (16:47)
[2023-08-05] MEDS: ACETAMINOPHEN 325 MG TABLET (FP) PO PRN (16:50)
[2023-08-05] MEDS: DIVALPROEX NA *ER* EXTEND REL 250 MG TABLET.SA PO SCH (16:51)
[2023-08-05] MEDS: AMINO ACIDS/PROTEIN HYDROLYS 30 ML LIQUID.PKT PO SCH (18:39)
[2023-08-05] MEDS: HALOPERIDOL LACTATE 5 MG/ML IM PRN (19:43)
[2023-08-05] MEDS: FAMOTIDINE 10 MG TABLET PO SCH (21:50)
[2023-08-05] MEDS: QUEtiapine FUMARATE 25 MG TABLET PO SCH (21:50)
[2023-08-05] MEDS: MIRTAZAPINE 15 MG TABLET (FP) PO SCH (21:50)
[2023-08-06] MEDS: ACETAMINOPHEN 325 MG TABLET (FP) PO PRN ×2 (10:22→18:50)
[2023-08-06] MEDS: AMINO ACIDS/PROTEIN HYDROLYS 30 ML LIQUID.PKT PO SCH ×2 (10:22→18:39)
[2023-08-06] MEDS: CEFTRIAXONE 1 GM in DEXTROSE 5%-WATER - 50 ML IVPB SCH (10:22)
[2023-08-06] MEDS: FAMOTIDINE 10 MG TABLET PO SCH (10:23)
[2023-08-06] MEDS: CITALOPRAM HYDROBROMIDE 20 MG TABLET PO SCH (10:23)
[2023-08-06] MEDS: QUEtiapine FUMARATE 25 MG TABLET PO SCH ×2 (10:25→22:24)
[2023-08-06] MEDS: SODIUM CHLORIDE 0.45% 1,000 ML IV SCH (17:16)
[2023-08-06] MEDS: DIVALPROEX NA *ER* EXTEND REL 250 MG TABLET.SA PO SCH (17:17)
[2023-08-06] MEDS: FERROUS SO4 325 MG TABLET (FP) PO SCH (17:26)
[2023-08-06] MEDS: VALPROATE SODIUM 250 MG/5 ML UNIT DOSE CUP PO SCH ×2 (17:27→22:25)
[2023-08-06] MEDS: MIRTAZAPINE 15 MG TABLET (FP) PO SCH (22:25)
[2023-08-07] MEDS: VALPROATE SODIUM 250 MG/5 ML UNIT DOSE CUP PO SCH ×3 (06:28→21:14)
[2023-08-07] MEDS: ACETAMINOPHEN 325 MG TABLET (FP) PO PRN ×2 (08:44→18:35)
[2023-08-07] MEDS: HALOPERIDOL LACTATE 5 MG/ML IM PRN (09:46)
[2023-08-07] MEDS: FAMOTIDINE 10 MG TABLET PO SCH (11:03)
[2023-08-07] MEDS: CITALOPRAM HYDROBROMIDE 20 MG TABLET PO SCH (11:03)
[2023-08-07] MEDS: QUEtiapine FUMARATE 25 MG TABLET PO SCH ×2 (11:03→21:14)
[2023-08-07] MEDS: PIPERACILLIN/TAZOB 2.25 GM 2.25 GM in DEXTROSE 5%-WATER - 50 ML IVPB SCH ×2 (13:10→18:02)
[2023-08-07] MEDS: FERROUS SO4 325 MG TABLET (FP) PO SCH (15:06)
[2023-08-07] MEDS: AMINO ACIDS/PROTEIN HYDROLYS 30 ML LIQUID.PKT PO SCH ×2 (15:24→18:02)
[2023-08-07] MEDS: SODIUM CHLORIDE 0.45% 1,000 ML IV SCH ×2 (15:28→19:42)
[2023-08-07] MEDS: CEFTRIAXONE 1 GM in DEXTROSE 5%-WATER - 50 ML IVPB SCH (15:29)
[2023-08-07] MEDS ORDERED: MAGNESIUM HYDROX 2400MG/30ML ORAL SUSPENSION 30 ML CUP PO ONE (17:21)
[2023-08-07] MEDS ORDERED: GLYCERIN 1 RECTAL SUPPOSITORY, ADULT RC PRN (17:21)
[2023-08-07] MEDS: MIRTAZAPINE 15 MG TABLET (FP) PO SCH (21:14)
[2023-08-08] MEDS: PIPERACILLIN/TAZOB 2.25 GM 2.25 GM in DEXTROSE 5%-WATER - 50 ML IVPB SCH ×2 (01:34→09:07)
[2023-08-08] MEDS: VALPROATE SODIUM 250 MG/5 ML UNIT DOSE CUP PO SCH ×2 (05:25→14:40)
[2023-08-08] MEDS: AMINO ACIDS/PROTEIN HYDROLYS 30 ML LIQUID.PKT PO SCH (08:47)
[2023-08-08 08:58] LABS: HEMATOCRIT 24.6 % (32.4-45.2); HEMOGLOBIN 8.3 GM/dL (10.7-15.3); MCH 30.7 pg (25.7-33.7); MCHC 33.7 g/dl (32.0-36.0); MEAN CELL VOLUME 91.1 fl (80-96); MEAN PLT VOLUME 8.4 fl (7.5-11.1); PLATELET COUNT 345 10^3/uL (134-434); RDW 16.3 % (11.6-15.6); WHITE BLOOD COUNT 9.8 K/mm3 (4.0-10.0)
[2023-08-08 09:07] LABS: POTASSIUM 3.8 mmol/L (3.5-5.1)
[2023-08-08] MEDS: FERROUS SO4 325 MG TABLET (FP) PO SCH (09:08)
[2023-08-08] MEDS: CITALOPRAM HYDROBROMIDE 20 MG TABLET PO SCH (09:08)
[2023-08-08] MEDS: QUEtiapine FUMARATE 25 MG TABLET PO SCH (09:08)
[2023-08-08] MEDS: FAMOTIDINE 10 MG TABLET PO SCH (09:08)
[2023-08-08 09:15] LABS: CREATININE 1.4 mg/dL (0.55-1.3)
[2023-08-08 09:17] LABS: BILIRUBIN,TOTAL 0.2 mg/dL (0.2-1); TOT PROT 6.1 g/dl (6.4-8.2)
[2023-08-08 09:18] LABS: ALBUMIN 2.2 g/dl (3.4-5.0)
[2023-08-08 11:03] VITALS: RESP 20
[2023-08-08 15:14] VITALS: BP 139/76; PULSE 71; TEMP 97.7
[2023-08-08 23:59] VITALS: BMI 29.5
== END 2023-08-08 16:08 | DRG 690 ==
LOC: JER 17:56 → INTOOBSV 08-05 01:26 → JERBED 08-05 01:26 → J6S 08-05 18:29 → OBSVTOIN 08-06 09:58 → J7W 08-07 22:29
PROVIDERS: ADMIT Internal Medicine; ATTEND Family Medicine
DX: N39.0 Urinary tract infection, site not specified (principal); N17.9 Acute kidney failure, unspecified; F03.90 Unspecified dementia, unspecified severity, without behavioral disturbance, psychotic disturbance, mood disturbance, and anxiety; N13.30 Unspecified hydronephrosis; D72.829 Elevated white blood cell count, unspecified; D64.9 Anemia, unspecified; I12.9 Hypertensive chronic kidney disease with stage 1 through stage 4 chronic kidney disease, or unspecified chronic kidney disease; N18.9 Chronic kidney disease, unspecified; D47.3 Essential (hemorrhagic) thrombocythemia; E78.5 Hyperlipidemia, unspecified; R62.7 Adult failure to thrive; N13.9 Obstructive and reflux uropathy, unspecified
CPT/HCPCS: 0241U-QW; 36415; 70450-TC; 71045-TC-FY; 72125-TC; 72170-TC-FY; 73030-TC-RT-FY; 73110-TC-LT-FY; 73110-TC-RT-FY; 73130-TC-LT-FY; 73130-TC-RT-FY; 73564-TC-LT-FY; 73564-TC-RT-FY; 80048; 80053; 81003; 82272; 82728; 83036; 83540; 83550; 83735; 84100; 84484; 85025; 85027; 85610; 85730; 87040; 87086; 87186; 93005; 93010; 99285-25; G0378; J1756

== ENCOUNTER 2023-08-22 11:57 | Inpatient (IN) | payer OTHER ==
[2023-08-22] MEDS ORDERED: HALOPERIDOL LACTATE 5 MG/ML IVPUSH ONE (14:37)
[2023-08-22] MEDS ORDERED: HALOPERIDOL LACTATE 5 MG/ML ONE ×2 (14:50→15:12)
[2023-08-22] MEDS ORDERED: HALOPERIDOL LACTATE 5 MG/ML IM ONE ×2 (14:50→15:12)
[2023-08-22] MEDS ORDERED: MIDAZOLAM HCL 2 MG/2 ML SINGLE DOSE VIAL ONE (16:29)
[2023-08-22] MEDS ORDERED: MIDAZOLAM HCL 2 MG/2 ML SINGLE DOSE VIAL IVPUSH ONE (16:37)
[2023-08-22] MEDS ORDERED: D5-1/2NS+20 MEQ KCL - 20 MEQ/1,000 ML INFUS.BAG IV SCH (17:15)
[2023-08-22 17:38] LABS: VENOUS BASE EXCESS -1.2 mmol/L (-2-2); VENOUS O2 SATURATION 36.7 % (70-80); VENOUS PCO2 39.2 mmHg (38-52); VENOUS PH 7.396 (7.310-7.410)
[2023-08-22 17:42] LABS: HEMATOCRIT 29.8 % (32.4-45.2); HEMOGLOBIN 9.7 GM/dL (10.7-15.3); MCH 29.5 pg (25.7-33.7); MCHC 32.7 g/dl (32.0-36.0); MEAN CELL VOLUME 90.3 fl (80-96); MEAN PLT VOLUME 7.4 fl (7.5-11.1); PLATELET COUNT 433 10^3/uL (134-434); WHITE BLOOD COUNT 12.7 K/mm3 (4.0-10.0)
[2023-08-22 17:50] LABS: INR 1.13 (0.83-1.09); PROTHROMBIN TIME (PATIENT) 13.1 SEC (9.7-13.0)
[2023-08-22 17:53] LABS: ACTIVATED PTT 29.1 SECONDS (25.2-36.5)
[2023-08-22 18:10] LABS: POTASSIUM 4.2 mmol/L (3.5-5.1)
[2023-08-22 18:12] LABS: ALBUMIN 2.6 g/dl (3.4-5.0); BLOOD UREA NITROGEN 29.4 mg/dL (7-18)
[2023-08-22 18:15] LABS: CREATININE 1.5 mg/dL (0.55-1.3)
[2023-08-22 18:16] LABS: BILIRUBIN,TOTAL 0.3 mg/dL (0.2-1); TOT PROT 7.3 g/dl (6.4-8.2)
[2023-08-22] MEDS ORDERED: QUEtiapine FUMARATE 25 MG TABLET ONE (20:43)
[2023-08-22] MEDS ORDERED: HEPARIN NA (PORCINE) 5,000 UNITS/ML 1ML VIAL ONE (20:43)
[2023-08-22] MEDS ORDERED: QUEtiapine FUMARATE 25 MG TABLET PO SCH (22:00)
[2023-08-22] MEDS: HEPARIN NA (PORCINE) 5,000 UNITS/ML 1ML VIAL SQ SCH (22:06)
[2023-08-22] MEDS: AMINO ACIDS/PROTEIN HYDROLYS 30 ML LIQUID.PKT PO SCH (23:30)
[2023-08-23 09:10] LABS: BASO % 0.4 % (0-2.0); EOS % 0.4 % (0-4.5); HEMATOCRIT 27.8 % (32.4-45.2); HEMOGLOBIN 9.1 GM/dL (10.7-15.3); MCH 29.6 pg (25.7-33.7); MCHC 32.6 g/dl (32.0-36.0); MEAN CELL VOLUME 90.7 fl (80-96); MEAN PLT VOLUME 7.9 fl (7.5-11.1); MONO % 10.4 % (3.8-10.2); NEUT % 76.8 % (42.8-82.8); PLATELET COUNT 447 10^3/uL (134-434); RBC 3.06 M/mm3 (3.60-5.2); RDW 15.7 % (11.6-15.6); WHITE BLOOD COUNT 11.3 K/mm3 (4.0-10.0)
[2023-08-23 09:33] LABS: POTASSIUM 4.3 mmol/L (3.5-5.1)
[2023-08-23 09:35] LABS: CALCIUM 8.3 mg/dL (8.5-10.1)
[2023-08-23 09:36] LABS: ALBUMIN 2.4 g/dl (3.4-5.0); BLOOD UREA NITROGEN 33.3 mg/dL (7-18); MAGNESIUM 1.9 mg/dL (1.8-2.4)
[2023-08-23 09:40] LABS: CREATININE 2.3 mg/dL (0.55-1.3); TOT PROT 6.9 g/dl (6.4-8.2)
[2023-08-23 09:41] LABS: BILIRUBIN,TOTAL 0.3 mg/dL (0.2-1)
[2023-08-23] MEDS: HEPARIN NA (PORCINE) 5,000 UNITS/ML 1ML VIAL SQ SCH ×2 (10:43→21:54)
[2023-08-23] MEDS: DIVALPROEX NA *ER* EXTEND REL 250 MG TABLET.SA PO SCH (10:45)
[2023-08-23] MEDS: FAMOTIDINE 20 MG TABLET PO SCH (10:45)
[2023-08-23] MEDS: PANTOPRAZOLE 20 MG TABLET PO SCH (10:45)
[2023-08-23] MEDS: AMINO ACIDS/PROTEIN HYDROLYS 30 ML LIQUID.PKT PO SCH ×2 (10:45→21:54)
[2023-08-23] MEDS: QUEtiapine FUMARATE 25 MG TABLET PO SCH (10:45)
[2023-08-23] MEDS: CITALOPRAM HYDROBROMIDE 20 MG TABLET PO SCH (10:45)
[2023-08-23 12:07] LABS: ANISOCYTOSIS 0; HELMET CELLS 0; HOWELL-JOLLY BODIES 0; MACROCYTOSIS 0; OVALOCYTE 0; ROULEAU 0; SICKELED CELLS 0; TARGET CELLS 0; TEAR DROP CELLS 0; TOXIC GRANULATION 0
[2023-08-23] MEDS ORDERED: MIDAZOLAM HCL 2 MG/2 ML SINGLE DOSE VIAL ONE (14:59)
[2023-08-23] MEDS ORDERED: FENTANYL CITRATE/PF 50 MCG/ML VIAL ONE (14:59)
[2023-08-23] MEDS: FENTANYL CITRATE/PF 50 MCG/ML VIAL IVPUSH SCH ×2 (15:05→15:20)
[2023-08-23] MEDS ORDERED: SODIUM CHLORIDE 500 ML IV ONE (15:45)
[2023-08-23] MEDS: CEFTRIAXONE 1 GM in DEXTROSE 5%-WATER - 50 ML IVPB SCH (21:54)
[2023-08-23] MEDS: QUEtiapine FUMARATE 50 MG TABLET PO SCH (21:54)
[2023-08-24] MEDS: ACETAMINOPHEN 325 MG TABLET (FP) PO PRN (06:10)
[2023-08-24] MEDS: QUEtiapine FUMARATE 25 MG TABLET PO SCH (06:15)
[2023-08-24] MEDS: AMINO ACIDS/PROTEIN HYDROLYS 30 ML LIQUID.PKT PO SCH ×3 (10:05→22:44)
[2023-08-24] MEDS: CITALOPRAM HYDROBROMIDE 20 MG TABLET PO SCH (10:05)
[2023-08-24] MEDS: DIVALPROEX NA *ER* EXTEND REL 250 MG TABLET.SA PO SCH (10:05)
[2023-08-24] MEDS: FAMOTIDINE 20 MG TABLET PO SCH (10:05)
[2023-08-24] MEDS: PANTOPRAZOLE 20 MG TABLET PO SCH (10:06)
[2023-08-24] MEDS: HEPARIN NA (PORCINE) 5,000 UNITS/ML 1ML VIAL SQ SCH ×2 (10:06→22:43)
[2023-08-24 10:54] LABS: HEMATOCRIT 25.2 % (32.4-45.2); HEMOGLOBIN 8.2 GM/dL (10.7-15.3); MCH 29.3 pg (25.7-33.7); MCHC 32.6 g/dl (32.0-36.0); MEAN PLT VOLUME 7.6 fl (7.5-11.1); PLATELET COUNT 423 10^3/uL (134-434); RDW 16.3 % (11.6-15.6); WHITE BLOOD COUNT 12.2 K/mm3 (4.0-10.0)
[2023-08-24 10:57] LABS: POTASSIUM 4.5 mmol/L (3.5-5.1)
[2023-08-24 10:58] LABS: CALCIUM 7.9 mg/dL (8.5-10.1)
[2023-08-24 10:59] LABS: BLOOD UREA NITROGEN 45.5 mg/dL (7-18)
[2023-08-24 11:02] LABS: CREATININE 2.7 mg/dL (0.55-1.3)
[2023-08-24 11:04] LABS: BILIRUBIN,TOTAL 0.3 mg/dL (0.2-1); TOT PROT 6.2 g/dl (6.4-8.2)
[2023-08-24] MEDS: D5-1/2NS+20 MEQ KCL - 20 MEQ/1,000 ML INFUS.BAG IV SCH (11:54)
[2023-08-24] MEDS: CEFTRIAXONE 1 GM in DEXTROSE 5%-WATER - 50 ML IVPB SCH ×2 (11:55→21:43)
[2023-08-24] MEDS ORDERED: AMOX TR/POTASSIUM CLAVULANATE 250 MG/5 ML BOTTLE PO SCH (12:00)
[2023-08-24] MEDS: AMOX TR/POTASSIUM CLAVULANATE 250 MG/5 ML BOTTLE PO SCH ×2 (12:57→17:30)
[2023-08-24] MEDS: QUEtiapine FUMARATE 50 MG TABLET PO SCH (22:42)
[2023-08-25] MEDS: QUEtiapine FUMARATE 25 MG TABLET PO SCH (07:40)
[2023-08-25] MEDS: ACETAMINOPHEN 325 MG TABLET (FP) PO PRN (08:44)
[2023-08-25] MEDS: HALOPERIDOL LACTATE 5 MG/ML IM PRN (10:33)
[2023-08-25] MEDS: AMINO ACIDS/PROTEIN HYDROLYS 30 ML LIQUID.PKT PO SCH ×2 (10:37→21:17)
[2023-08-25] MEDS: CITALOPRAM HYDROBROMIDE 20 MG TABLET PO SCH (10:38)
[2023-08-25] MEDS: DIVALPROEX NA *ER* EXTEND REL 250 MG TABLET.SA PO SCH (10:38)
[2023-08-25] MEDS: HEPARIN NA (PORCINE) 5,000 UNITS/ML 1ML VIAL SQ SCH ×2 (10:39→21:17)
[2023-08-25] MEDS: FAMOTIDINE 20 MG TABLET PO SCH (10:40)
[2023-08-25] MEDS: PANTOPRAZOLE 20 MG TABLET PO SCH (10:40)
[2023-08-25] MEDS: D5-1/2NS+20 MEQ KCL - 20 MEQ/1,000 ML INFUS.BAG IV SCH ×2 (11:37→12:40)
[2023-08-25] MEDS: CEFTRIAXONE 1 GM in DEXTROSE 5%-WATER - 50 ML IVPB SCH (11:40)
[2023-08-25] MEDS: AMINO ACIDS 4.25%/D5W 1,000 ML IV SCH (12:38)
[2023-08-25] MEDS: DEXAMETHASONE SOD PHOSPHATE 4 MG/1 ML VIAL IVPUSH SCH (12:39)
[2023-08-25] MEDS ORDERED: REMDESIVIR 200 MG in SODIUM CHLORIDE 250 ML IVPB ONE (13:00)
[2023-08-25] MEDS: QUEtiapine FUMARATE 50 MG TABLET PO SCH (21:17)
[2023-08-26] MEDS: ACETAMINOPHEN 325 MG TABLET (FP) PO PRN (02:40)
[2023-08-26] MEDS: QUEtiapine FUMARATE 25 MG TABLET PO SCH (06:10)
[2023-08-26 10:05] LABS: MCH 28.5 pg (25.7-33.7); MCHC 31.1 g/dl (32.0-36.0); MEAN CELL VOLUME 91.6 fl (80-96); MEAN PLT VOLUME 7.7 fl (7.5-11.1); PLATELET COUNT 639 10^3/uL (134-434); RBC 3.17 M/mm3 (3.60-5.2); RDW 15.9 % (11.6-15.6); WHITE BLOOD COUNT 11.8 K/mm3 (4.0-10.0)
[2023-08-26 10:20] LABS: POTASSIUM 3.9 mmol/L (3.5-5.1)
[2023-08-26] MEDS: CEFTRIAXONE 1 GM in DEXTROSE 5%-WATER - 50 ML IVPB SCH (10:21)
[2023-08-26] MEDS: FAMOTIDINE 20 MG TABLET PO SCH (10:21)
[2023-08-26] MEDS: PANTOPRAZOLE 20 MG TABLET PO SCH (10:21)
[2023-08-26] MEDS: HEPARIN NA (PORCINE) 5,000 UNITS/ML 1ML VIAL SQ SCH ×2 (10:22→21:28)
[2023-08-26] MEDS: DEXAMETHASONE SOD PHOSPHATE 4 MG/1 ML VIAL IVPUSH SCH (10:22)
[2023-08-26] MEDS: CITALOPRAM HYDROBROMIDE 20 MG TABLET PO SCH (10:22)
[2023-08-26] MEDS: DIVALPROEX NA *ER* EXTEND REL 250 MG TABLET.SA PO SCH (10:22)
[2023-08-26 10:37] LABS: CALCIUM 8.4 mg/dL (8.5-10.1)
[2023-08-26 10:40] LABS: BLOOD UREA NITROGEN 49.2 mg/dL (7-18)
[2023-08-26 10:41] LABS: CREATININE 1.9 mg/dL (0.55-1.3)
[2023-08-26] MEDS: AMINO ACIDS/PROTEIN HYDROLYS 30 ML LIQUID.PKT PO SCH ×2 (11:55→21:28)
[2023-08-26] MEDS: REMDESIVIR 100 MG in SODIUM CHLORIDE 250 ML IVPB SCH (11:55)
[2023-08-26] MEDS: AMINO ACIDS 4.25%/D5W 1,000 ML IV SCH (13:09)
[2023-08-26] MEDS: QUEtiapine FUMARATE 50 MG TABLET PO SCH (21:28)
[2023-08-27] MEDS: QUEtiapine FUMARATE 25 MG TABLET PO SCH (06:09)
[2023-08-27 09:23] LABS: HEMATOCRIT 29.9 % (32.4-45.2); HEMOGLOBIN 9.3 GM/dL (10.7-15.3); MCH 28.5 pg (25.7-33.7); MEAN CELL VOLUME 92.1 fl (80-96); MEAN PLT VOLUME 7.5 fl (7.5-11.1); PLATELET COUNT 694 10^3/uL (134-434); RBC 3.25 M/mm3 (3.60-5.2); WHITE BLOOD COUNT 13.5 K/mm3 (4.0-10.0)
[2023-08-27 09:42] LABS: POTASSIUM 4.6 mmol/L (3.5-5.1)
[2023-08-27 09:48] LABS: CALCIUM 8.5 mg/dL (8.5-10.1)
[2023-08-27 09:49] LABS: BLOOD UREA NITROGEN 51.3 mg/dL (7-18)
[2023-08-27 09:52] LABS: CREATININE 1.5 mg/dL (0.55-1.3)
[2023-08-27] MEDS ORDERED: cefTRIAXone SODIUM 1 GM VIAL ONE (09:55)
[2023-08-27] MEDS: DIVALPROEX NA *ER* EXTEND REL 250 MG TABLET.SA PO SCH (10:06)
[2023-08-27] MEDS: HEPARIN NA (PORCINE) 5,000 UNITS/ML 1ML VIAL SQ SCH ×2 (10:06→22:10)
[2023-08-27] MEDS: PANTOPRAZOLE 20 MG TABLET PO SCH (10:06)
[2023-08-27] MEDS: CEFTRIAXONE 1 GM in DEXTROSE 5%-WATER - 50 ML IVPB SCH (10:06)
[2023-08-27] MEDS: CITALOPRAM HYDROBROMIDE 20 MG TABLET PO SCH (10:06)
[2023-08-27] MEDS: REMDESIVIR 100 MG in SODIUM CHLORIDE 250 ML IVPB SCH (10:07)
[2023-08-27] MEDS: FAMOTIDINE 20 MG TABLET PO SCH (10:07)
[2023-08-27] MEDS: AMINO ACIDS/PROTEIN HYDROLYS 30 ML LIQUID.PKT PO SCH ×2 (10:08→22:11)
[2023-08-27] MEDS: DEXAMETHASONE SOD PHOSPHATE 4 MG/1 ML VIAL IVPUSH SCH (10:12)
[2023-08-27] MEDS: D5-1/2NS+20 MEQ KCL - 20 MEQ/1,000 ML INFUS.BAG IV SCH (10:13)
[2023-08-27] MEDS: HALOPERIDOL LACTATE 5 MG/ML IM PRN (15:35)
[2023-08-27] MEDS: QUEtiapine FUMARATE 50 MG TABLET PO SCH (22:11)
[2023-08-28] MEDS: QUEtiapine FUMARATE 25 MG TABLET PO SCH ×2 (07:27→10:15)
[2023-08-28] MEDS: FAMOTIDINE 20 MG TABLET PO SCH (10:15)
[2023-08-28] MEDS: CITALOPRAM HYDROBROMIDE 20 MG TABLET PO SCH (10:16)
[2023-08-28] MEDS: PANTOPRAZOLE 20 MG TABLET PO SCH (10:16)
[2023-08-28] MEDS: DIVALPROEX NA *ER* EXTEND REL 250 MG TABLET.SA PO SCH (10:16)
[2023-08-28] MEDS: DEXAMETHASONE SOD PHOSPHATE 4 MG/1 ML VIAL IVPUSH SCH (10:17)
[2023-08-28] MEDS: D5-1/2NS+20 MEQ KCL - 20 MEQ/1,000 ML INFUS.BAG IV SCH (10:28)
[2023-08-28] MEDS: HEPARIN NA (PORCINE) 5,000 UNITS/ML 1ML VIAL SQ SCH ×2 (10:28→21:43)
[2023-08-28] MEDS: CEFTRIAXONE 1 GM in DEXTROSE 5%-WATER - 50 ML IVPB SCH (10:30)
[2023-08-28] MEDS: AMINO ACIDS/PROTEIN HYDROLYS 30 ML LIQUID.PKT PO SCH ×2 (10:30→21:43)
[2023-08-28] MEDS: REMDESIVIR 100 MG in SODIUM CHLORIDE 250 ML IVPB SCH (11:22)
[2023-08-28] MEDS: HALOPERIDOL LACTATE 5 MG/ML IM PRN (13:23)
[2023-08-28] MEDS ORDERED: FENTANYL CITRATE/PF 50 MCG/ML VIAL ONE (15:59)
[2023-08-28] MEDS ORDERED: FENTANYL CITRATE/PF 50 MCG/ML VIAL IVPUSH ONE (16:00)
[2023-08-28] MEDS ORDERED: cefTRIAXone SODIUM 1 GM VIAL ONE (16:02)
[2023-08-28 17:00] VITALS: RESP 18
[2023-08-28] MEDS: QUEtiapine FUMARATE 50 MG TABLET PO SCH (21:43)
[2023-08-28 23:37] VITALS: BMI 35.2
[2023-08-29] MEDS: D5-1/2NS+20 MEQ KCL - 20 MEQ/1,000 ML INFUS.BAG IV SCH ×2 (03:12→10:56)
[2023-08-29] MEDS: QUEtiapine FUMARATE 25 MG TABLET PO SCH (06:16)
[2023-08-29 09:29] LABS: HEMATOCRIT 27.3 % (32.4-45.2); HEMOGLOBIN 8.7 GM/dL (10.7-15.3); MCH 29.5 pg (25.7-33.7); MCHC 31.8 g/dl (32.0-36.0); MEAN CELL VOLUME 92.7 fl (80-96); MEAN PLT VOLUME 8.2 fl (7.5-11.1); PLATELET COUNT 528 10^3/uL (134-434); RBC 2.95 M/mm3 (3.60-5.2); RDW 16.2 % (11.6-15.6); WHITE BLOOD COUNT 10.8 K/mm3 (4.0-10.0)
[2023-08-29 09:39] LABS: POTASSIUM 4.4 mmol/L (3.5-5.1)
[2023-08-29 09:42] LABS: BLOOD UREA NITROGEN 38.6 mg/dL (7-18); CALCIUM 8.2 mg/dL (8.5-10.1)
[2023-08-29 09:46] LABS: CREATININE 1.4 mg/dL (0.55-1.3)
[2023-08-29] MEDS: CITALOPRAM HYDROBROMIDE 20 MG TABLET PO SCH (10:01)
[2023-08-29] MEDS: DIVALPROEX NA *ER* EXTEND REL 250 MG TABLET.SA PO SCH (10:01)
[2023-08-29] MEDS: FAMOTIDINE 20 MG TABLET PO SCH (10:01)
[2023-08-29] MEDS: CEFTRIAXONE 1 GM in DEXTROSE 5%-WATER - 50 ML IVPB SCH (10:01)
[2023-08-29] MEDS: DEXAMETHASONE SOD PHOSPHATE 4 MG/1 ML VIAL IVPUSH SCH (10:02)
[2023-08-29] MEDS: HEPARIN NA (PORCINE) 5,000 UNITS/ML 1ML VIAL SQ SCH (10:03)
[2023-08-29] MEDS: REMDESIVIR 100 MG in SODIUM CHLORIDE 250 ML IVPB SCH (10:55)
[2023-08-29] MEDS: PANTOPRAZOLE 20 MG TABLET PO SCH (10:55)
[2023-08-29] MEDS: AMINO ACIDS/PROTEIN HYDROLYS 30 ML LIQUID.PKT PO SCH (11:08)
[2023-08-29 14:47] VITALS: BP 116/64; PULSE 85; TEMP 97.7
== END 2023-08-29 15:34 | DRG 698 ==
LOC: JER 11:57 → JERBED 16:56 → J6S 08-23 15:43
PROVIDERS: ADMIT Family Medicine; ATTEND Family Medicine
PROC: 0T9130Z Drainage of Left Kidney with Drainage Device, Percutaneous Approach (ICD-10-PCS; principal; 2023-08-22)
PROC: XW033E5 Introduction of Remdesivir Anti-infective into Peripheral Vein, Percutaneous Approach, New Technology Group 5 (ICD-10-PCS; 2023-08-25)
PROC: 0T9030Z Drainage of Right Kidney with Drainage Device, Percutaneous Approach (ICD-10-PCS; 2023-08-28)
DX: T83.022A Displacement of nephrostomy catheter, initial encounter (principal); J18.9 Pneumonia, unspecified organism; U07.1 COVID-19; N13.30 Unspecified hydronephrosis; N17.9 Acute kidney failure, unspecified; N18.4 Chronic kidney disease, stage 4 (severe); N39.0 Urinary tract infection, site not specified; Y83.8 Other surgical procedures as the cause of abnormal reaction of the patient, or of later complication, without mention of misadventure at the time of the procedure; F03.90 Unspecified dementia, unspecified severity, without behavioral disturbance, psychotic disturbance, mood disturbance, and anxiety; E78.5 Hyperlipidemia, unspecified; I12.9 Hypertensive chronic kidney disease with stage 1 through stage 4 chronic kidney disease, or unspecified chronic kidney disease; Z93.1 Gastrostomy status
CPT/HCPCS: 0241U-QW; 36415; 50432; 71045-TC-FY; 76775-TC; 80048; 80053; 82803; 82962; 83735; 84443; 85025; 85027; 85610; 85730; 86140; 86850; 86900; 86901; 87040; 87070; 87075; 87086; 87102; 87116; 87186; 87205; 87206; 87210; 93005; 93010; 99285-25; J0248; J1644

== ENCOUNTER 2023-09-04 03:46 | Day surgery (SDC) | payer OTHER ==
[2023-09-04 07:52] VITALS: BMI 26.1
[2023-09-04] MEDS ORDERED: FENTANYL CITRATE/PF 50 MCG/ML VIAL ONE ×2 (11:10→11:25)
[2023-09-04] MEDS ORDERED: FENTANYL CITRATE/PF 50 MCG/ML VIAL IVPUSH ONE ×2 (11:14→11:25)
[2023-09-04] MEDS ORDERED: SODIUM CHLORIDE 500 ML IV SCH (11:14)
[2023-09-04 13:16] VITALS: BP 132/62; PULSE 96; RESP 16
[2023-09-04 13:27] VITALS: TEMP 96.2
== END 2023-09-04 11:35 | disposition home or self-care (01) ==
LOC: JRADIR 03:46
PROVIDERS: ATTEND Physician Assistant
PROC: 0T9030Z Drainage of Right Kidney with Drainage Device, Percutaneous Approach (ICD-10-PCS; principal; 2023-09-04)
DX: N13.30 Unspecified hydronephrosis (principal)
CPT/HCPCS: 50432